=== PATIENT | female | born 1940 | race Caucasian/White ===

== ENCOUNTER 2017-11-08 11:23 | Emergency (ER) | payer MEDICARE, BC ==
[2016-05-08 14:06] VITALS: BMI 34.8
[~2017-11-08 11:23] MED LIST: ABILIFY2 MG PO; ADVAIR 250/501 DISK INH; ADVAIR 500/501 DISK INH; ALLEGRA180 MG PO; ASPIRIN81 MG PO; ATIVAN2 MG/ML IV; BAYER CHEWABLE81 MG PO; BENZONATATE200 MG PO; BISAC-EVAC10 MG/SUPP RC; CLARITIN 10 MG10 MG PO; CLARITIN10 MG/TAB PO; DALIRESP500 MCG PO; DEPO-MEDROL40 MG/ML IV; DEXTROSE 50%/WA50 ML IV; DIABETA1.25 MG PO; DUONEB 2.5-0.5 M3 ML INH; EX-LAX MIL400 MG/5 M PO; FERROUS SULFAT325 MG PO; FLORAJEN3 CAPS460 MG PO; FLUTICASONE PRO16 GM NASAL; FLUTICASONE PRO16 GM NS; GLUCAGON1 MG/KIT IM; GLUCAGON1 MG/KIT SQ; GLUCOPHAGE500 MG PO; HUMALOG 30100 UNITS/ SC; HUMALOG100 U/M1 SQ; INSTA-GLUCOSE31 GM PO; IPRAT-ALBUT 0.5-3 ML UPD; KEPPRA500 MG PO; LANTUS SOL100 UNIT/1 SQ; LASIX20 MG PO; LEVOTHROID50 MCG PO; LOPRESSOR25 MG PO; LOVENOX40 MG/0.4 SQ; MILK OF MAGNESI30 ML PO; MUCINEX DM ER1 EAC1 PO; MUCUS RELIEF400 MG PO; MYCOSTATIN 500,05 ML PO; MYSOLINE 50 MG50 MG PO; NEURONTIN 300300 MG PO; NOVOLOG100 U/ML SQ; OMNICEF300 MG PO; PLAVIX75 MG PO; PREDNISONE10 MG PO; PREDNISONE20 MG PO; PROAIR HFA8.5 GM INH; PROTONIX 40 MG40 MG OR; PROTONIX40 MG PO; PROVENTIL/2.5 MG/3 M INH; ROBITUSSIN DM 110 ML OR; SENNA PLUS TA1 UDTAB PO; SINGULAIR10 MG PO; SODIUM CL 0.91000 ML IVPB; TANZEUM30 MG/0.5 SC; TYLENOL325 MG PO; WELLBUTRIN XL150 M1 PO; ZOCOR40 MG PO; ZOLOFT100 MG PO; ZOLOFT50 MG PO; [UNRECOGNIZED DRUG - OTHER] PEG
[2017-11-08 12:02] LABS: HEMATOCRIT 47.8 % (36.0-48.0); HEMOGLOBIN 15.1 g/dL (12-16); LYMPHOCYTES 19.5 % (15-50); MCH 28.8 pg (26.0-34.0); MCHC 31.6 g/dL (31.0-37.0); MEAN PLATELET VOLUME 9.9 fL (7.4-10.4); NEUTROPHILS 73.6 % (40-80); PLATELET COUNT 240 10x3/uL (130-400); RBC 5.25 10x6/uL (4.00-5.40); RDW 16.1 % (11.5-14.5); WBC 8.1 10x3/uL (4.8-10.8)
[2017-11-08 12:17] LABS: ALBUMIN 3.4 g/dL (3.4-5.0); ANION GAP 10.7 mmol/L (8-16); BILIRUBIN - TOTAL 0.32 mg/dL (0.2-1.3); CALCIUM 8.8 mg/dL (8.5-10.1); CARBON DIOXIDE 33.8 mmol/L (21.0-32.0); POTASSIUM - SERUM 4.5 mmol/L (3.5-5.1); PROTEIN - SERUM 7.6 g/dL (6.4-8.2)
[2017-11-08 13:41] LABS: APPEARANCE HAZY (CLEAR); BILIRUBIN NEGATIVE (NEGATIVE); COLOR YELLOW (YELLOW); GLUCOSE NEGATIVE (NEGATIVE); KETONE NEGATIVE (NEGATIVE); NITRITE NEGATIVE (NEGATIVE); PROTEIN NEGATIVE (NEGATIVE); SPECIFIC GRAVITY 1.015 (1.005-1.020); UROBILINOGEN NORMAL (NORMAL)
[2017-11-08 13:46] LABS: BACTERIA FEW /hpf (NONE SEEN); EPITHELIAL CELLS 0-5 /hpf (0-5); RED CELLS - URINE 25-50 /hpf (0-5); WHITE CELLS - URINE 0-5 /hpf (0-5)
[2017-11-08 13:47] LABS: MUCUS <1+ /lpf (NONE SEEN)
== END 2017-11-08 13:50 | disposition home or self-care (01) ==
LOC: D.ER 11:23
PROVIDERS: Emergency Medicine
DX: R11.10 Vomiting, unspecified (principal); R10.9 Unspecified abdominal pain; J44.9 Chronic obstructive pulmonary disease, unspecified; J40 Bronchitis, not specified as acute or chronic; Z86.73 Personal history of transient ischemic attack (TIA), and cerebral infarction without residual deficits

== ENCOUNTER 2018-12-13 02:33 | Inpatient (IN) | payer MEDICARE, BC ==
[2018-12-13] VITALS (8 sets, daily range): BP systolic 90–154; BP diastolic 50–78; BMI 44.0; BMI 43.9
[~2018-12-13] VITALS: Ht 157.5 cm; Wt 85.1 kg
[2018-12-13] MEDS ORDERED: WELLBUTRIN SR150 MG PO (02:42)
[2018-12-13] MEDS ORDERED: LANTUS SOL100 UNIT/1 SC (02:43)
[2018-12-13] MEDS ORDERED: DULCOLAX5 MG PO (02:44)
[2018-12-13] MEDS ORDERED: SENNA LAXATIVE8.6 MG PO (02:44)
[2018-12-13] MEDS ORDERED: CALCIUM 600 +1 EAC3 PO (02:45)
[2018-12-13] MEDS ORDERED: COLACE100 MG PO (02:45)
[2018-12-13] MEDS ORDERED: DEPAKOTE125 MG PO (02:46)
[2018-12-13] MEDS ORDERED: KEPPRA500 MG PO (02:47)
[2018-12-13] MEDS ORDERED: MYSOLINE 50 MG50 MG PO (02:48)
[2018-12-13] MEDS ORDERED: CARBIDOPA-LEVO1 EAC4 PO (02:49)
[2018-12-13] MEDS ORDERED: IPRAT-ALBUT 0.5-3 ML UPD (02:50)
[2018-12-13] MEDS ORDERED: ACETAMINOPHEN325 MG PO (02:51)
[2018-12-13 03:09] LABS: BASOPHILS 0.2 % (0-2); EOSINOPHILS 6.3 % (0-7); HEMATOCRIT 46.1 % (36.0-48.0); HEMOGLOBIN 14.5 g/dL (12-16); IMMATURE GRANULOCYTES 0.2 % (0-5); LYMPHOCYTES 23.2 % (15-50); MCH 30.2 pg (26.0-34.0); MCHC 31.5 g/dL (31.0-37.0); MEAN PLATELET VOLUME 10.5 fL (7.4-10.4); MONOCYTES 13.2 % (2-11); NEUTROPHILS 56.9 % (40-80); PLATELET COUNT 280 10x3/uL (130-400); RDW 14.3 % (11.5-14.5); WBC 10.2 10x3/uL (4.8-10.8)
[2018-12-13 03:36] LABS: ALBUMIN 3.2 g/dL (3.4-5.0); ALKALINE PHOSPHATASE 61 U/L (46-116); ALT (SGPT) 8 U/L (10-68); BILIRUBIN - TOTAL 0.25 mg/dL (0.2-1.3); CALC OSMOLALITY 288 mosm/kg (275-300); CALCIUM 8.5 mg/dL (8.5-10.1); CARBON DIOXIDE 36.3 mmol/L (21.0-32.0); CHLORIDE - SERUM 99 mmol/L (98-107); CKMB 2.5 U/L (0.0-3.6); CREATINE KINASE 141 UL (21-215); CREATININE - SERUM 0.8 mg/dL (0.6-1.3); POTASSIUM - SERUM 3.9 mmol/L (3.5-5.1); PRO BNP 315 pg/mL (0-450); SODIUM 144 mmol/L (136-145); TROPONIN-I 0.018 ng/mL (0.000-0.060); UREA NITROGEN 18 mg/dL (7-18); eGFR NON AFRICAN AMERICAN 74 mL/min (90-120)
[2018-12-13 03:37] LABS: GLUCOSE 102 mg/dL (74-106)
--- NOTE | 2018-12-13 05:07 | NUR ---
PT BRIEF CHANGED. PT REPOSITIONED IN BED AND LEAVING VIA STRETCHER FOR CT.
--- NOTE | 2018-12-13 05:33 | NUR ---
PT RETURNED FROM CT.
--- NOTE | 2018-12-13 10:36 | NUR ---
ARRIVED FROM ER EARLIER IN THE SHIFT. PT IS ALERT AND ORIENTED X4. 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 L ANKLE HAS A SMALL AMT OF EDEMA NOTED. L FOOT IS COLD BUT CAPIILLARY REFILL IS LESS THAN 3 SEC. WHEEZING NOTED CHIQUITA UPPER LOBES. O2 ON @ 2L NC. SEE ADMISSION ASSESSMENT FOR FURTHER EVAL.
--- NOTE | 2018-12-13 18:35 | NUR ---
WITHOUT CHANGES OR DISTRESS NOTED AT THIS TIME.
--- NOTE | 2018-12-13 19:26 | NUR ---
PT ASLEEP, O2 5L NC. PT SLEEPING WITH MOUTH WIDE OPEN. RESP EVEN AND UNLABORED, NAME AND DATE PLACED ON BOARD. BEDLOW AND CALL LIGHT IN REACH. NO S/S OF DISTRESS. WILL CPOC
--- NOTE | 2018-12-13 20:36 | NUR ---
PT IS AAO X3, EDUCATION GIVEN ON MEDICATION. PT VERBALIZED UNDERSTANDING BUT MAY NEED FURTHER INSTRUCTION. PT FSBS IS 91, NO INSULIN GIVEN PER SLIDING SCALE. PT REQUESTED HER MEDICATION BE CRUSHED, CRUSHED MEDICATION THAT IS ALLOWED TO BE CRUSHED. PT EATING APPLE SAUCE WITH OUT ASSIST AND DRINKING MILK. HOB ABOVE 40 DEGREE. SOLU MED GIVEN IN RIGHT AC IV. PT DENIES ANY NEEDS AT THIS TIME. NEEDED ASSIST WHEN THE APPLE SAUCE GOT LOW, COULD NOT USE LEFT HAND. PT GIVEN ASSISTANCE. NO S/S OF DISTRESS. WILL CPOC
--- NOTE | 2018-12-14 00:52 | NUR ---
UNSUCCESSFUL ATTEMPT TO OBTAIN UA NEEDED.
--- NOTE | 2018-12-14 03:53 | NUR ---
PT COMPLAINED OF CHEST PAIN AND RIGHT HAND PAIN. DID AN EKG AND CHECKED VITALS. BOTH WNL. TOOK EXTRA STICKERS OFF OF PT AND SHE STATED SHE FELT BETTER. WHEN I ASKED PT WAS IT HEART PAIN SHE SAID IM NOT SURE I DONT KNOW WHERE MY HEART IS. I ASKED PT TO POINT TO WHERE SHE HAD PAIN AND IT WAS IN THE UPPER EPIGASTRIC AREA. PT HAS NO S/S OF DISTRESS. AND NO LONGER COMPLAINS OF PAIN. PLACED EKG IN CHART. PT IS INCONT A LARGE AMOUNT. CLEANED PT AND REPOSITIONED./ PT DENIES ANY OTHER NEEDS. WILL CPOC
[2018-12-14 04:00] VITALS: BP 114/58
[2018-12-14 06:16] LABS: BASOPHILS 0.2 % (0-2); EOSINOPHILS 0.1 % (0-7); HEMATOCRIT 41.4 % (36.0-48.0); HEMOGLOBIN 12.7 g/dL (12-16); IMMATURE GRANULOCYTES 0.3 % (0-5); LYMPHOCYTES 20.4 % (15-50); MCH 29.2 pg (26.0-34.0); MCHC 30.7 g/dL (31.0-37.0); MCV 95.2 fL (80.0-100.0); MEAN PLATELET VOLUME 10.4 fL (7.4-10.4); PLATELET COUNT 308 10x3/uL (130-400); RBC 4.35 10x6/uL (4.00-5.40); RDW 14.7 % (11.5-14.5)
[2018-12-14 06:39] LABS: BILIRUBIN - TOTAL 0.24 mg/dL (0.2-1.3); CALCIUM 8.9 mg/dL (8.5-10.1); CARBON DIOXIDE 36.4 mmol/L (21.0-32.0); CREATININE - SERUM 0.8 mg/dL (0.6-1.3); POTASSIUM - SERUM 4.4 mmol/L (3.5-5.1); PROTEIN - SERUM 7.4 g/dL (6.4-8.2)
--- NOTE | 2018-12-14 07:28 | NUR ---
PT FSBS IS 141 NO INSUILN NEEDED PER SLIDING SCALE. PT MORNING MEDS GIVEN. PT DENIES ANY NEEDS. WILL CPOC
--- NOTE | 2018-12-14 08:30 | NUR ---
PT RESTING IN BED. SHIFT ASSESSMENT PERFORMED. PT ORIENTED TO ROOM AND INSTRUCTED TO USE CALL LIGHT. DENIES PAIN AT THIS TIME, WILL CONT TO FOLLOW PLAN OF CARE
[2018-12-14 08:51] VITALS: BP 113/61
[2018-12-14 12:48] VITALS: BP 120/48
[2018-12-14 14:42] LABS: APPEARANCE CLEAR (CLEAR); BILIRUBIN NEGATIVE (NEGATIVE); COLOR YELLOW (YELLOW); GLUCOSE NEGATIVE (NEGATIVE); KETONE SMALL mg/dL (NEGATIVE); NITRITE NEGATIVE (NEGATIVE); PROTEIN NEGATIVE (NEGATIVE); SPECIFIC GRAVITY 1.015 (1.005-1.020); UROBILINOGEN NORMAL (NORMAL)
[2018-12-14 15:38] VITALS: Ht 157.5 cm; Wt 85.1 kg
[2018-12-14 16:49] VITALS: BP 130/58
--- NOTE | 2018-12-14 19:31 | NUR ---
RESUMED CARE OF PT, LYING IN BED RESPIRATIONS EVEN AND UNLABORED ON 5LPM VIA NC. 66 SR ON TELEMETRY. ULTRASOUND COMPLETE, SANDWICH TRAY PROVIDED. NO FURTHER NEEDS AT THIS TIME. CALL LIGHT IN REACH. SEE NURSE ASSESSMENT.
[2018-12-14 20:00] VITALS: BP 145/58
[2018-12-15] VITALS: BP 140/52
[2018-12-15 04:00] VITALS: BP 110/55
[2018-12-15 06:37] LABS: ANION GAP 9.4 mmol/L (8-16); CALCIUM 8.7 mg/dL (8.5-10.1); CARBON DIOXIDE 36.2 mmol/L (21.0-32.0); CREATININE - SERUM 0.8 mg/dL (0.6-1.3); POTASSIUM - SERUM 4.6 mmol/L (3.5-5.1)
[2018-12-15 06:39] LABS: BASOPHILS 0.1 % (0-2); EOSINOPHILS 0 % (0-7); HEMATOCRIT 41.2 % (36.0-48.0); HEMOGLOBIN 12.9 g/dL (12-16); IMMATURE GRANULOCYTES 0.6 % (0-5); LYMPHOCYTES 18.4 % (15-50); MCH 29.6 pg (26.0-34.0); MCHC 31.3 g/dL (31.0-37.0); MCV 94.5 fL (80.0-100.0); MEAN PLATELET VOLUME 10.6 fL (7.4-10.4); MONOCYTES 9.2 % (2-11); NEUTROPHILS 71.7 % (40-80); PLATELET COUNT 304 10x3/uL (130-400); RBC 4.36 10x6/uL (4.00-5.40); RDW 14.6 % (11.5-14.5); WBC 10.1 10x3/uL (4.8-10.8)
--- NOTE | 2018-12-15 08:30 | NUR ---
PT RESTING IN BED. SHIFT ASSESSMENT PERFORMED. DENIES ANY NEEDS AT THIS TIME. DENIES PAIN AT THIS TIME, WILL CONT TO FOLLOW PLAN OF CARE
[2018-12-15 08:56] VITALS: BP 146/64
[2018-12-15 12:34] VITALS: BP 127/59
[2018-12-15 17:51] VITALS: BP 146/60
--- NOTE | 2018-12-15 19:21 | NUR ---
PT IN BED WATCHING TELEVISON. DENIES NEEDS AT THIS TIME.
[2018-12-15 20:23] VITALS: BP 160/75
[2018-12-16 01:05] VITALS: BP 142/60
[2018-12-16 05:36] VITALS: BP 149/57
[2018-12-16 06:33] LABS: BASOPHILS 0.1 % (0-2); EOSINOPHILS 0 % (0-7); HEMATOCRIT 42.7 % (36.0-48.0); HEMOGLOBIN 13.2 g/dL (12-16); IMMATURE GRANULOCYTES 0.9 % (0-5); LYMPHOCYTES 17.4 % (15-50); MCH 29.3 pg (26.0-34.0); MCHC 30.9 g/dL (31.0-37.0); MCV 94.7 fL (80.0-100.0); MEAN PLATELET VOLUME 10.8 fL (7.4-10.4); NEUTROPHILS 72.6 % (40-80); PLATELET COUNT 298 10x3/uL (130-400); RBC 4.51 10x6/uL (4.00-5.40); RDW 14.7 % (11.5-14.5); WBC 11.3 10x3/uL (4.8-10.8)
[2018-12-16 06:45] LABS: CALC OSMOLALITY 284 mosm/kg (275-300); CALCIUM 8.4 mg/dL (8.5-10.1); CARBON DIOXIDE 30.8 mmol/L (21.0-32.0); CHLORIDE - SERUM 102 mmol/L (98-107); CREATININE - SERUM 0.7 mg/dL (0.6-1.3); GLUCOSE 143 mg/dL (74-106); POTASSIUM - SERUM 4.5 mmol/L (3.5-5.1); SODIUM 139 mmol/L (136-145); UREA NITROGEN 27 mg/dL (7-18); eGFR NON AFRICAN AMERICAN 86 mL/min (90-120)
--- NOTE | 2018-12-16 07:10 | NUR ---
REPORT RECIEVED FROM PARTY CHIEF. PATIENT LAYING IN BED ON BACK WITH EYES CLOSED AND BREATHING EVENLY. WILL CONTINUE WITH PLAN OF CARE. SR UP X 2 BED IN LOW POSTION AND CALL LIGHT IN REACH.
[2018-12-16 08:06] VITALS: BP 132/71
--- NOTE | 2018-12-16 10:39 | NUR ---
PATIENT AWAKE SITTING UP IN BED. PATIENT DENIES ANY NEEDS OR PAIN. ASSESSMENT COMPLETED. WILL CONTINUE TO MONITOR. SR UP X 2 BED IN LOW POSTION AND CALL LIGHT IN REACH.
[2018-12-16 11:45] VITALS: BP 136/67
--- NOTE | 2018-12-16 14:30 | NUR ---
PATIENT SITTING UP IN BED WATCHING TV. PATIENT IS STABLE AND VSS. PATIENT DENIES ANY NEEDS OR PAIN. WILL CONTINUE TO MONITOR. SR UP X 2 BED IN LOW POSTION AND CALL LIGHT IN REACH.
--- NOTE | 2018-12-16 15:55 | NUR ---
Rehab Prescreening Consult recieved and the chart has been reviewed. Her PT nixon stated she is a [facility] patient that is a total lift and does not ambulate. PT has signed off stating she is not appropriate for Skilled PT. To qualify for acute rehab a patient must have the need for a minimum of two therapies, and be able to participate in 3 hours of therapy 5 days a week. Oneyda Grimaldo RN Clinical Liaison, Rehab
[2018-12-16 15:56] VITALS: BP 114/66
--- NOTE | 2018-12-16 17:42 | NUR ---
PATIENT SITTING UP IN BED EATING SUPPER. PATIENT IS STABLE AND VSS. PATIENT DENIES ANY NEEDS OR PAIN. WILL CONTINUE TO MONITOR. SR UP X 2 BED IN LOW POSITION AND CALL LIGHT IN REACH.
--- NOTE | 2018-12-16 19:33 | NUR ---
EVENING ROUNDS COMPLETED. REPORT RECEIVED. PT SITTING UP IN BED WITH EYES OPEN, RR EVEN AND UNLABORED. NO S/S OF DISTRESS, INTRODUCED SELF TO PT. PT DENIES FURTHER NEEDS. PT ASKED ME TO SIT HER BED DOWN SLIGHTLY LOWER TO PROVIDE FOR COMFORT. CALL LIGHT IN REACH. WILL CTM.
[2018-12-16 20:00] VITALS: BP 105/60
[2018-12-17] VITALS (7 sets, daily range): BP systolic 109–149; BP diastolic 40–72
--- NOTE | 2018-12-17 01:46 | NUR ---
PT SITTING UP IN BED WITH EYES OPEN, RR EVEN AND UNLABORED. BED IN LOW POSITION. ZEESHAN ALARM PLACED UNDERNEATH PT. PT CURRENTLY BEING PROVIDED BED BATH. CALL LIGHT IN REACH. WILL CTM.
--- NOTE | 2018-12-17 02:15 | NUR ---
RN NOTE: PATIENT RESTING COMFORTABLY IN BED. RESPIRATIONS ARE EVEN AND UNLABORED. PATIENT PLACED ON BED ALARM. NO S/S OF DISTRESS. NO C/O PAIN. CALL LIGHT WITHIN REACH. WILL CPOC.
--- NOTE | 2018-12-17 04:59 | NUR ---
PT LYING IN BED WITH EYES OPEN, RR EVEN AND UNLABORED. DENIES FURTHER NEEDS AT THIS TIME. BED IN LOW POSITION. ZEESHAN ALARM TURNED ON. CALL LIGHT IN REACH. WILL CTM.
[2018-12-17 05:25] LABS: BASOPHILS 0.1 % (0-2); EOSINOPHILS 0 % (0-7); HEMATOCRIT 39.9 % (36.0-48.0); HEMOGLOBIN 12.3 g/dL (12-16); IMMATURE GRANULOCYTES 1.3 % (0-5); LYMPHOCYTES 15.2 % (15-50); MCH 29.2 pg (26.0-34.0); MCHC 30.8 g/dL (31.0-37.0); MCV 94.8 fL (80.0-100.0); MEAN PLATELET VOLUME 10.7 fL (7.4-10.4); MONOCYTES 13.8 % (2-11); NEUTROPHILS 69.6 % (40-80); PLATELET COUNT 312 10x3/uL (130-400); RBC 4.21 10x6/uL (4.00-5.40); RDW 14.9 % (11.5-14.5)
[2018-12-17 05:36] LABS: CALCIUM 8.1 mg/dL (8.5-10.1); CARBON DIOXIDE 33.7 mmol/L (21.0-32.0); CREATININE - SERUM 0.8 mg/dL (0.6-1.3); POTASSIUM - SERUM 4.7 mmol/L (3.5-5.1)
--- NOTE | 2018-12-17 07:10 | NUR ---
REPORT RECEIVED FROM ACID LOADER. PATIENT LAYING IN BED WITH EYES CLOSED AND BREATHING EVENLY. WILL CONTINUE WITH PLAN OF CARE. SR UP X 2 BED IN LOW PSOTION AND CALL LIGHT IN REACH.
--- NOTE | 2018-12-17 13:54 | NUR ---
PATIENT SITTING UP IN BED WATCHING TV. PATIENT IS STABLE AND VSS. PATIENT DENIES ANY NEEDS OR PAIN. WILL CONTINUE TO MONITOR. SR UP X 2 BED IN LOW PSOTION AND CALL LIGHT IN REACH.
--- NOTE | 2018-12-17 19:28 | NUR ---
EVENING ROUNDS COMPLETED, REPORT RECEIVED. PT SITTING UP IN BEDSIDE CHAIR WITH EYES OPEN, RR EVEN AND UNLABORED. BED IN LOW POSITION. NO S/S OF DISTRESS. DENIES FURTHER NEEDS. BEDPAN REMOVED FROM PT, PT HAD SMALL PARTIALLY FORMED BOWEL MOVEMENT, BROWN IN COLOR. INTRODUCED SELF TO PT. PT DENIES FURTHER NEEDS AT THIS TIME. OXYGEN AT 5 LITERS BY NASAL CANNULA. CALL LIGHT IN REACH. WILL CTM.
--- NOTE | 2018-12-18 01:56 | NUR ---
PT SITTING UP IN BED WITH EYES CLOSED, RR EVEN AND UNLABORED. NO S/S OF DISTRESS NOTED. 54 SINUS NATALIIA ON TELEMETRY. BED IN LOW POSITION. ZEESHAN ALARM TURNED ON. CALL LIGHT IN REACH. WILL CTM.
[2018-12-18 03:53] VITALS: BP 131/66
--- NOTE | 2018-12-18 05:00 | NUR ---
ASSESSMENT REVIEWED AND IN AGREEMENT. PT RESTING WITH NO DISTRESS. MONITOR AND CPOC.
[2018-12-18 05:34] LABS: BASOPHILS 0.1 % (0-2); EOSINOPHILS 0 % (0-7); HEMATOCRIT 39.6 % (36.0-48.0); HEMOGLOBIN 12.2 g/dL (12-16); IMMATURE GRANULOCYTES 1.3 % (0-5); LYMPHOCYTES 12.4 % (15-50); MCH 29.6 pg (26.0-34.0); MCHC 30.8 g/dL (31.0-37.0); MCV 96.1 fL (80.0-100.0); MEAN PLATELET VOLUME 11.4 fL (7.4-10.4); MONOCYTES 10.4 % (2-11); NEUTROPHILS 75.8 % (40-80); PLATELET COUNT 284 10x3/uL (130-400); RBC 4.12 10x6/uL (4.00-5.40); RDW 14.8 % (11.5-14.5)
[2018-12-18 05:50] LABS: ANION GAP 5.8 mmol/L (8-16); CALCIUM 8.1 mg/dL (8.5-10.1); CARBON DIOXIDE 31.7 mmol/L (21.0-32.0); CREATININE - SERUM 0.8 mg/dL (0.6-1.3); POTASSIUM - SERUM 4.5 mmol/L (3.5-5.1)
--- NOTE | 2018-12-18 05:56 | NUR ---
PT SITTING UP IN BED WITH EYES OPEN, RR EVEN AND UNLABORED. NO S/S OF DISTRESS NOTED. DENIES FURTHER NEEDS AT THIS TIME. CALL LIGHT IN REACH. WILL CTM.
--- NOTE | 2018-12-18 07:10 | NUR ---
REPORT RECIEVED FROM ENDBAND CUTTER HAND. PATIENT LAYING IN BED ON BACK WITH EYES CLOSED AND BREATHING EVENLY. VSS. WILL CONTINUE WITH PLAN OF CARE.
[2018-12-18 09:41] VITALS: BP 137/60
--- NOTE | 2018-12-18 09:50 | NUR ---
PATIENT AWAKE ALERT AND ORIENTED X 2. PATIENT IS STABLE AND VSS. PATIENT DENIES ANY NEEDS OR PAIN. ASSESSMENT COMPLETED. SR UP X 2 BED IN LOW POSTION AND CALL LIGHT IN REACH. WILL CONTINUE TO MONITOR.
[2018-12-18 11:45] VITALS: BP 139/68
--- NOTE | 2018-12-18 13:36 | NUR ---
PATIENT LAYING IN BED WATCHING TV. LINEN CHANGED AND PATYIENT REPOSTIONED FOR COMFORT. PATIENT DENIES ANY NNEDS OR PAIN. WILL CONTINUE TO MONITOR. SR UP X 2 BED IN LOW POSITION AND CALL LIGHT IN REACH. BED ALARM IN PLACE.
[2018-12-18 15:58] VITALS: BP 136/65
--- NOTE | 2018-12-18 17:37 | NUR ---
PATIENT SITTING UP IN BED EATING SUPPER. MEDS GIVEN PER MAR. PATIENT IS STABLE AND VSS. PATIENT DENEIS ANY NEEDS OR PAIN. WILL CONTINUE TO MONITOR. SR UP X 2 BED IN LOW POSITION AND CALL LIGHT REACH.
--- NOTE | 2018-12-18 19:23 | NUR ---
RECIEVED UP IN BED WITH HOB ELEVATED, EYES OPEN AND TV ON. ALERT AND ORIENTED X4. HAS LEFT SIDED WEAKNESS AND IS INCONT AT TIMES. DENIES ANY NEEDS.
[2018-12-18 19:55] VITALS: BP 132/55
[2018-12-18 23:50] VITALS: BP 130/56
[2018-12-19 03:45] VITALS: BP 144/59
[2018-12-19 06:35] LABS: BASOPHILS 0.1 % (0-2); EOSINOPHILS 0.2 % (0-7); HEMATOCRIT 39.1 % (36.0-48.0); HEMOGLOBIN 12.2 g/dL (12-16); LYMPHOCYTES 16.4 % (15-50); MCH 29.9 pg (26.0-34.0); MCHC 31.2 g/dL (31.0-37.0); MCV 95.8 fL (80.0-100.0); MEAN PLATELET VOLUME 10.9 fL (7.4-10.4); MONOCYTES 8.9 % (2-11); NEUTROPHILS 73.4 % (40-80); PLATELET COUNT 279 10x3/uL (130-400); RBC 4.08 10x6/uL (4.00-5.40)
[2018-12-19 06:37] LABS: WBC 12.9 10x3/uL (4.8-10.8)
--- NOTE | 2018-12-19 07:10 | NUR ---
REPORT RECIEVED FROM INBOUND SALES REPRESENTATIVE. PATIENT AWAKE ALERT AND ORIENTED X 4. VSS. PATIENT DENEIS ANY NEEDS OR PAIN. WILL CONTINUE WITH PLAN OF CARE.
[2018-12-19 07:12] LABS: CALC OSMOLALITY 291 mosm/kg (275-300); CALCIUM 8.2 mg/dL (8.5-10.1); CARBON DIOXIDE 32.3 mmol/L (21.0-32.0); CHLORIDE - SERUM 104 mmol/L (98-107); CREATININE - SERUM 0.7 mg/dL (0.6-1.3); POTASSIUM - SERUM 4.3 mmol/L (3.5-5.1); SODIUM 144 mmol/L (136-145); UREA NITROGEN 25 mg/dL (7-18); eGFR NON AFRICAN AMERICAN 86 mL/min (90-120)
[2018-12-19 07:13] LABS: GLUCOSE 110 mg/dL (74-106)
[2018-12-19 08:03] VITALS: BP 138/48
[2018-12-19 12:01] VITALS: BP 134/49
--- NOTE | 2018-12-19 14:30 | NUR ---
PATIENT IS STABLE AND UNCHNGED. WILL CONTINUE TO MONITOR. SR UP X 2 BED IN LOW POSTION AND CALL LIGHT IN REACH.
--- NOTE | 2018-12-19 15:04 | NUR ---
Nutrition follow-up: Diet: ADA mechanical soft with nectar thick liquids PO intake ~75% average of meals Labs reviewed Wt: 164# +BM RDN following
[2018-12-19 15:40] VITALS: BP 120/87
--- NOTE | 2018-12-19 16:30 | MORECARE ---
CASE MANAGEMENT DISCHARGE SUMMARY PATIENT: LIZZIE HOLLOWAY UNIT: [id number] ADM DATE: 12/13/18 AGE: 78 : 41 SEX: F ROOM/BED: D.7309 AUTHOR: MATT,DOC PHYSICIAN: REFERRING PHYSICIAN: VICKEY ORTIZ MD DATE OF SERVICE: 12/19/18 Discharge Plan Patient Name: LIZZIE HOLLOWAY Facility: [facility]:[place] : 1940 Planned Disposition: Nursing Facility ZOFIA Cert Anticipated Discharge Date: Discharge Date: Expected LOS: Initial Reviewer: [id number] Initial Review Date: 12/19/2018 Generated: 12/19/18 5:29 pm Comments DCP- Discharge Planning Updated by [id number]: Aileen Salinas on 12/18/18 5:[address] CM MET WITH THE PATIENT AT THE BEDSIDE. EXPLAINED CM HAD ORDER FROM MD TO DISCUSS DCP. PATIENT CONSENTS TO SPEAK WITH CM. SHE WAS ADMITTED FROM [facility]. SHE WOULD LIKE TO DISCHARGE TO HER SISTER'S HOME AT DISCHARGE. SHE STATES SHE WILL NEED TO SPEAK WITH HER SISTER SHE HAS HER OWN MEDICAL ISSUES. HER SISTER IS ALAN LEE. PATIENT REPORTS SHE HAS A CELL PHONE [phone]. DISCHARGE PLAN IS PENDING. WILL NEED TO FOLLOW UP WITH SHIRLEY AND HER SISTER. DCPIA - Discharge Planning Initial Assessment Updated by [id number]: Bolivar Pink on 12/19/18 4:28 pm * Is the patient Alert and Oriented? Yes * How many steps to enter\exit or inside your home? NONE * PCP DR. ZUÑIAG * [facility] * Preadmission Environment Group Fitness Instructor Acute Care Facility * Facility Name [facility] * ADLs Partial Dependent * Partial ADLs (Assistance needed) Ambulation Bathing Medication Management Transfers * Equipment Other * Other Equipment ALL MEDICAL EQUIPMENT PROVIDED BY THE FACILITY * List name and contact numbers for known caregivers / representatives who currently or will assist patient after discharge: ALAN LEE, SISTER, * Verbal permission to speak to the caregivers and representatives has been obtained from the patient. Yes * Community resources currently utilized None * Please name any agencies selected above. NONE * Additional services required to return to the preadmission environment? No * Can the patient safely return to the preadmission environment? Yes * Has this patient been hospitalized within the prior 30 days at any hospital? No External Providers External Provider: [facility] Next Contact Date: 12/19/2018 Service Request Date: Service Type: Resolution: Reviewer: Comments: Coverage Notice Reviewer: [id number] Pink Notice Issued Date-Time: 12/19/2018 11:05 Notice Type: Patient Choice Letter Notice Delivered To: Family Member Relationship to Patient: Sister Attending Anesthesiologist Name: ALAN LEE Delivery Method: PHONE - Phone Becca Days: Prior Verbal Notification: Recipient Understood Notice: Yes Recipient Signature: Med Rec Note Co-signed by Attending: Coverage Notice Comment: SHIRLEY ROSE RETURN TO [facility] Reviewer: [id number] Pink Notice Issued Date-Time: 12/19/2018 14:30 Notice Type: IM Discharge Notice Notice Delivered To: Family Member Relationship to Patient: Sister Attending Anesthesiologist Name: ALAN LEE Delivery Method: PHONE - Phone Becca Days: Prior Verbal Notification: Recipient Understood Notice: Yes Recipient Signature: Med Rec Note Co-signed by Attending: Coverage Notice Comment: HAND DELIVERED COPY TO PT IN ROOM. Reviewer: [id number] Pink Notice Issued Date-Time: 12/19/2018 14:30 Notice Type: IM Discharge Notice Notice Delivered To: Patient Relationship to Patient: Attending Anesthesiologist Name: Delivery Method: HAND - Hand Delivered Becca Days: Prior Verbal Notification: Recipient Understood Notice: Yes Recipient Signature: Med Rec Note Co-signed by Attending: Coverage Notice Comment: PT REPORTS INABILITY TO SIGN ANYTHING Patient Name: LIZZIE HOLLOWAY Page [id number] at 1630 All edits/amendments must be made on the electronic document DICTATION DATE: 12/19/181628 FOSTER PARENT: ARNEL 12/19/181628 RPT#: [id number] DC DATE: STATUS: ADM IN [facility] [address] [place] [address] END OF REPORT
--- NOTE | 2018-12-19 16:41 | MORECARE ---
CASE MANAGEMENT DISCHARGE SUMMARY PATIENT: LIZZIE HOLLOWAY UNIT: [id number] ADM DATE: 12/13/18 AGE: 78 : 41 SEX: F ROOM/BED: D.3549 AUTHOR: MATT,DOC PHYSICIAN: REFERRING PHYSICIAN: VICKEY ORTIZ MD DATE OF SERVICE: 12/19/18 Discharge Plan Patient Name: LIZZIE HOLLOWAY Facility: [facility]:[place] : 1940 Planned Disposition: Nursing Facility ZOFIA Cert Anticipated Discharge Date: Discharge Date: Expected LOS: Initial Reviewer: [email or web address] Initial Review Date: 12/19/2018 Generated: 12/19/18 5:41 pm Comments DCP- Discharge Planning Updated by [id number]: Bolivar Pink on 12/19/18 3:[address] Patient Name: LIZZIE HOLLOWAY Encounter No: [id number] : 1940 Primary Insurance: MEDICARE A & B Anticipated DC Date: Planned Disposition: Nursing Facility ZOFIA Cert External Planned Provider: [facility], [employer] MEDICAID BED DCP follow-up note: CM SPOKE TO PT'S SISTER VIA PHONE, ALAN LEE, , WHO INFORMED CM THAT SHE TOOK CARE OF PT FOR 10 YEARS AT HOME. PT IS NOW A TOTAL CARE PT AND WILL HAVE TO RETURN TO [facility]. ALAN SEE'S PT AT LEAST THREE TIMES PER WEEK AT THE FACILITY AND IS SATISFIED WITH CARE RECEIVED THERE. CHOICE LETTER COMPLETED VIA PHONE. CM MET WITH PT LATER IN THE DAY, DISCUSSED DISCHARGE PLANNING. PT WAS HOPEFUL SHE COULD GO HOME BUT UNDERSTANDS THAT HER SISTER CANNOT CARE FOR HER. ALAN DILLAN CONTACTED VIA PHONE, CHOICE DISCUSSED, PROVIDER LISTING LEFT WITH PT. CHOICE COMPLETED VIA PHONE FOR [facility]. CM PROVIDED AND DISCUSSED IMPORTANT MESSAGE FROM MEDICARE. PT REPORTS INABILITY TO SIGN ANYTHING. ALAN ASKED TO BE NOTIFIED WHEN PT DISCHARGES BACK TO [facility]. CM NOTIFIED SHAY OF [facility], , WHO VERIFIED PT IS IN [facility] CARE BED AT FACILITY. CM FAXED UPDATE TO [facility] VIA SHAY AT [phone]. FOR DISCHARGE, FAX DISCHARGE INFORMATION TO [facility] AT [phone]. NURSE REPORT TO BE CALLED TO [facility] AT [phone]. [facility] TO ARRANGE VAN TRANSPORTATION. Bolivar Pink, CASE MANAGEMENT DCP- Discharge Planning Updated by [id number]: Aileen Brad on 12/18/18 5:[address] CM MET WITH THE PATIENT AT THE BEDSIDE. EXPLAINED CM HAD ORDER FROM MD TO DISCUSS DCP. PATIENT CONSENTS TO SPEAK WITH CM. SHE WAS ADMITTED FROM [facility]. SHE WOULD LIKE TO DISCHARGE TO HER SISTER'S HOME AT DISCHARGE. SHE STATES SHE WILL NEED TO SPEAK WITH HER SISTER SHE HAS HER OWN MEDICAL ISSUES. HER SISTER IS ALAN LEE. PATIENT REPORTS SHE HAS A CELL PHONE [phone]. DISCHARGE PLAN IS PENDING. WILL NEED TO FOLLOW UP WITH SHIRLEY AND HER SISTER. DCPIA - Discharge Planning Initial Assessment Updated by [id number]: Bolivar Pnik on 12/19/18 4:28 pm * Is the patient Alert and Oriented? Yes * How many steps to enter\exit or inside your home? NONE * PCP DR. ZUÑIGA * Pharm[facility] * Preadmission Environment Longterm Acute Care Facility * Facility Name [facility] * ADLs Partial Dependent * Partial ADLs (Assistance needed) Ambulation Bathing Medication Management Transfers * Equipment Other * Other Equipment ALL MEDICAL EQUIPMENT PROVIDED BY THE FACILITY * List name and contact numbers for known caregivers / representatives who currently or will assist patient after discharge: ALAN LEE, SISTER, * Verbal permission to speak to the caregivers and representatives has been obtained from the patient. Yes * Community resources currently utilized None * Please name any agencies selected above. NONE * Additional services required to return to the preadmission environment? No * Can the patient safely return to the preadmission environment? Yes * Has this patient been hospitalized within the prior 30 days at any hospital? No Coverage Notice Reviewer: [id number] - Bolivar Pink Notice Issued Date-Time: 12/19/2018 11:05 Notice Type: Patient Choice Letter Notice Delivered To: Family Member Relationship to Patient: Sister Bellhop Service Captain Name: ALAN LEE Delivery Method: PHONE - Phone Becca Days: Prior Verbal Notification: Recipient Understood Notice: Yes Recipient Signature: Med Rec Note Co-signed by Attending: Coverage Notice Comment: [place] RETURN TO [facility] Reviewer: [id number] Rory Pink Notice Issued Date-Time: 12/19/2018 14:30 Notice Type: IM Discharge Notice Notice Delivered To: Family Member Relationship to Patient: Sister Bellhop Service Captain Name: ALAN LEE Delivery Method: PHONE - Phone Becca Days: Prior Verbal Notification: Recipient Understood Notice: Yes Recipient Signature: Med Rec Note Co-signed by Attending: Coverage Notice Comment: HAND DELIVERED COPY TO PT IN ROOM. Reviewer: [id number] Rory Pink Notice Issued Date-Time: 12/19/2018 14:30 Notice Type: IM Discharge Notice Notice Delivered To: Patient Relationship to Patient: Bellhop Service Captain Name: Delivery Method: HAND - Hand Delivered Becca Days: Prior Verbal Notification: Recipient Understood Notice: Yes Recipient Signature: Med Rec Note Co-signed by Attending: Coverage Notice Comment: PT REPORTS INABILITY TO SIGN ANYTHING Last DP export: 12/19/18 3:29 pm Patient Name: LIZZIE HOLLOWAY Page [phone] at 1641 All edits/amendments must be made on the electronic document DICTATION DATE: 12/19/18 164 STORYBOARD ARTIST: ARNEL 12/19/181640 RPT#: [id number] DC DATE: STATUS: ADM IN [facility] [address] [place] [address] END OF REPORT
--- NOTE | 2018-12-19 19:41 | NUR ---
RESUMED CARE OF PT, LYING IN BED RESPIRATIONS EVEN AND UNLABORED ON 2LPM VIA NC. 68 SR ON TELEMETRY. RIGHT FOREARM SALINE LOCKED. NO NEEDS VOICED AT THIS TIME, CALL LIGHT IN REACH. SEE NURSE ASSESSMENT.
[2018-12-19 20:00] VITALS: BP 125/56
[2018-12-20] VITALS: BP 130/55; BP 164/50
[2018-12-20 05:55] LABS: BASOPHILS 0 % (0-2); EOSINOPHILS 0.3 % (0-7); HEMOGLOBIN 10.3 g/dL (12-16); IMMATURE GRANULOCYTES 1.5 % (0-5); LYMPHOCYTES 14.3 % (15-50); MCH 29.4 pg (26.0-34.0); MCHC 31.2 g/dL (31.0-37.0); MCV 94.3 fL (80.0-100.0); MEAN PLATELET VOLUME 11.1 fL (7.4-10.4); MONOCYTES 7.7 % (2-11); NEUTROPHILS 76.2 % (40-80); PLATELET COUNT 237 10x3/uL (130-400); RDW 15.2 % (11.5-14.5); WBC 11.3 10x3/uL (4.8-10.8)
[2018-12-20 06:36] LABS: ALBUMIN 2.5 g/dL (3.4-5.0); ANION GAP 11.5 mmol/L (8-16); BILIRUBIN - TOTAL 0.33 mg/dL (0.2-1.3); CALCIUM 7.9 mg/dL (8.5-10.1); CARBON DIOXIDE 30.2 mmol/L (21.0-32.0); CREATININE - SERUM 0.8 mg/dL (0.6-1.3); POTASSIUM - SERUM 4.7 mmol/L (3.5-5.1); PROTEIN - SERUM 6.1 g/dL (6.4-8.2)
[2018-12-20 09:57] VITALS: BP 105/49
--- NOTE | 2018-12-20 11:16 | NUR ---
BLOOD SUGAR OF 191, 8UNITS OF HUMULIN GIVEN PER S/S. PT IN BED, DENIES ANY NEEDS AT THIS TIME. CALL LIGHT IN REACH, NAD NOTED, WILL CONTINUE TO MONITOR.
--- NOTE | 2018-12-20 16:11 | NUR ---
BLOOD SUGAR OF 184 GAVE 8 UNITS OF HUMULIN PER S/S. PT DENIES ANY NEEDS AT THIS TIME. CALL LIGHT IN REACH, NAD NOTED.
--- NOTE | 2018-12-20 16:25 | NUR ---
RECEIVED REPORT FROM IASHWARYA LEWSI. ROOM NOT CLEANED YET.
[2018-12-20 18:48] VITALS: BP 131/71
--- NOTE | 2018-12-20 19:11 | NUR ---
INTRODUCED SELF TO PATIENT, RESP EVEN AND UNLABORED, HELPED PATIENT OFF BEDPAN AND REPOSITIONED.
[2018-12-20 20:00] VITALS: BP 136/50
--- NOTE | 2018-12-21 02:44 | NUR ---
PATIENT RESTING QUIETLY, EYES CLOSED. RESP EVEN AND UNLABORED.
[2018-12-21 04:00] VITALS: BP 117/52
[2018-12-21 05:01] LABS: BASOPHILS 0.1 % (0-2); EOSINOPHILS 0.2 % (0-7); HEMATOCRIT 32.2 % (36.0-48.0); HEMOGLOBIN 9.9 g/dL (12-16); IMMATURE GRANULOCYTES 1.5 % (0-5); LYMPHOCYTES 10.5 % (15-50); MCHC 30.7 g/dL (31.0-37.0); MCV 94.4 fL (80.0-100.0); MEAN PLATELET VOLUME 10.7 fL (7.4-10.4); MONOCYTES 7.3 % (2-11); NEUTROPHILS 80.4 % (40-80); PLATELET COUNT 256 10x3/uL (130-400); RBC 3.41 10x6/uL (4.00-5.40); RDW 15.2 % (11.5-14.5); WBC 11.9 10x3/uL (4.8-10.8)
[2018-12-21 05:19] LABS: ALBUMIN 2.5 g/dL (3.4-5.0); ANION GAP 10.4 mmol/L (8-16); BILIRUBIN - TOTAL 0.35 mg/dL (0.2-1.3); CALCIUM 8.1 mg/dL (8.5-10.1); CARBON DIOXIDE 32.3 mmol/L (21.0-32.0); CREATININE - SERUM 0.8 mg/dL (0.6-1.3); POTASSIUM - SERUM 4.7 mmol/L (3.5-5.1); PROTEIN - SERUM 6.1 g/dL (6.4-8.2)
--- NOTE | 2018-12-21 09:00 | MORECARE ---
CASE MANAGEMENT DISCHARGE SUMMARY PATIENT: LIZZIE HOLLOWAY UNIT: [id number] ADM DATE: 12/13/18 AGE: 78 : 41 SEX: F ROOM/BED: D.8933 AUTHOR: MATT,DOC PHYSICIAN: REFERRING PHYSICIAN: VICKEY ORTIZ MD DATE OF SERVICE: 12/21/18 Discharge Plan Patient Name: LIZZIE HOLLOWAY Facility: [facility]:[place] : 1940 Planned Disposition: Nursing Facility ZOFIA Cert Anticipated Discharge Date: Discharge Date: Expected LOS: Initial Reviewer: [id number] Initial Review Date: 12/19/2018 Generated: 12/21/18 10:00 am Comments DCP- Discharge Planning Updated by [email or web address]: Bolivar Pink on 12/19/18 3:[address] Patient Name: LIZZIE HOLLOWAY Encounter No: [id number] : 1940 Primary Insurance: MEDICARE A & B Anticipated DC Date: Planned Disposition: Nursing Facility ZOFIA Cert External Planned Provider: [facility], LONG-TERM CARE MEDICAID BED DCP follow-up note: CM SPOKE TO PT'S SISTER VIA PHONE, ALAN LEE, , WHO INFORMED CM THAT SHE TOOK CARE OF PT FOR 10 YEARS AT HOME. PT IS NOW A TOTAL CARE PT AND WILL HAVE TO RETURN TO [facility]. ALAN SEE'S PT AT LEAST THREE TIMES PER WEEK AT THE FACILITY AND IS SATISFIED WITH CARE RECEIVED THERE. CHOICE LETTER COMPLETED VIA PHONE. CM MET WITH PT LATER IN THE DAY, DISCUSSED DISCHARGE PLANNING. PT WAS HOPEFUL SHE COULD GO HOME BUT UNDERSTANDS THAT HER SISTER CANNOT CARE FOR HER. ALAN DILLAN CONTACTED VIA PHONE, CHOICE DISCUSSED, PROVIDER LISTING LEFT WITH PT. CHOICE COMPLETED VIA PHONE FOR [facility]. CM PROVIDED AND DISCUSSED IMPORTANT MESSAGE FROM MEDICARE. PT REPORTS INABILITY TO SIGN ANYTHING. ALAN ASKED TO BE NOTIFIED WHEN PT DISCHARGES BACK TO [facility]. 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 CM FAXED UPDATE TO [facility] VIA [employer] AT [phone]. FOR DISCHARGE, FAX DISCHARGE INFORMATION TO [facility] AT [phone]. NURSE REPORT TO BE CALLED TO [facility] AT [phone]. [facility] TO ARRANGE VAN TRANSPORTATION. Bolivar Pink, CASE MANAGEMENT DCP- Discharge Planning Updated by [id number]: Aileenlydia Salinas on 12/18/18 5:[address] CM MET WITH THE PATIENT AT THE BEDSIDE. EXPLAINED CM HAD ORDER FROM MD TO DISCUSS DCP. PATIENT CONSENTS TO SPEAK WITH CM. SHE WAS ADMITTED FROM [facility]. SHE WOULD LIKE TO DISCHARGE TO HER SISTER'S HOME AT DISCHARGE. SHE STATES SHE WILL NEED TO SPEAK WITH HER SISTER SHE HAS HER OWN MEDICAL ISSUES. HER SISTER IS ALAN LEE. PATIENT REPORTS SHE HAS A CELL PHONE [phone]. DISCHARGE PLAN IS PENDING. WILL NEED TO FOLLOW UP WITH SHIRLEY AND HER SISTER. DCPIA - Discharge Planning Initial Assessment Updated by [id number]: Bolivar Pink on 12/19/18 4:28 pm * Is the patient Alert and Oriented? Yes * How many steps to enter\exit or inside your home? NONE * PCP DR. ZUÑIGA * [facility] * Preadmission Environment [facility] Acute [facility] * Facility Name [facility] * ADLs Partial Dependent * Partial ADLs (Assistance needed) Ambulation Bathing Medication Management Transfers * Equipment Other * Other Equipment ALL MEDICAL EQUIPMENT PROVIDED BY THE FACILITY * List name and contact numbers for known caregivers / representatives who currently or will assist patient after discharge: ALAN LEE, SISTER, * Verbal permission to speak to the caregivers and representatives has been obtained from the patient. Yes * Community resources currently utilized None * Please name any agencies selected above. NONE * Additional services required to return to the preadmission environment? No * Can the patient safely return to the preadmission environment? Yes * Has this patient been hospitalized within the prior 30 days at any hospital? No External Providers External Provider: [facility] Next Contact Date: 12/19/2018 Service Request Date: Service Type: Resolution: Reviewer: Comments: Coverage Notice Reviewer: [id number] - Bolivar Pink Notice Issued Date-Time: 12/19/2018 11:05 Notice Type: Patient Choice Letter Notice Delivered To: Family Member Relationship to Patient: Sister Mason Tender Name: ALAN LEE Delivery Method: PHONE - Phone Becca Days: Prior Verbal Notification: Recipient Understood Notice: Yes Recipient Signature: Med Rec Note Co-signed by Attending: Coverage Notice Comment: SHIRLEY ROSE RETURN TO LTC Reviewer: [id number] Rory Pink Notice Issued Date-Time: 12/19/2018 14:30 Notice Type: IM Discharge Notice Notice Delivered To: Family Member Relationship to Patient: Sister Mason Tender Name: ALAN LEE Delivery Method: PHONE - Phone Becca Days: Prior Verbal Notification: Recipient Understood Notice: Yes Recipient Signature: Med Rec Note Co-signed by Attending: Coverage Notice Comment: HAND DELIVERED COPY TO PT IN ROOM. Reviewer: [id number] Rory Pink Notice Issued Date-Time: 12/19/2018 14:30 Notice Type: IM Discharge Notice Notice Delivered To: Patient Relationship to Patient: Mason Tender Name: Delivery Method: HAND - Hand Delivered Becca Days: Prior Verbal Notification: Recipient Understood Notice: Yes Recipient Signature: Med Rec Note Co-signed by Attending: Coverage Notice Comment: PT REPORTS INABILITY TO SIGN ANYTHING Last DP export: 12/19/18 3:41 pm Patient Name: LIZZIE HOLLOWAY Page [phone] at 0900 All edits/amendments must be made on the electronic document DICTATION DATE: 12/21/18899 FINANCIAL INSTITUTION BRANCH MANAGER: ARNEL 12/21/18899 RPT#: [id number] DC DATE: STATUS: ADM IN [facility] [address] [place] [address] END OF REPORT
--- NOTE | 2018-12-21 09:28 | MORECARE ---
CASE MANAGEMENT DISCHARGE SUMMARY PATIENT: LIZZIE HOLLOWAY UNIT: [id number] ADM DATE: 12/13/18 AGE: 78 : 41 SEX: F ROOM/BED: D.3311 AUTHOR: MATT,DOC PHYSICIAN: REFERRING PHYSICIAN: VICKEY ORTIZ MD DATE OF SERVICE: 12/21/18 Discharge Plan Patient Name: LIZZIE HOLLOWAY Facility: [facility]:[place] : 1940 Planned Disposition: Nursing Facility ZOFIA Cert Anticipated Discharge Date: 12/21/18 Discharge Date: Expected LOS: 8 Initial Reviewer: [id number] Initial Review Date: 12/19/2018 Generated: 12/21/18 10:28 am Comments DCP- Discharge Planning Updated by [id number]: Bolivar Pink on 12/21/18 8:[address] Patient Name: LIZZIE HOLLOWAY Encounter No: [id number] : 1940 Primary Insurance: MEDICARE A & B Anticipated DC Date: 12-21-2018 Planned Disposition: Nursing Facility ZOFIA Cert External Planned Provider: [facility], LONG TERM CARE MEDICAID BED DCP follow-up note: CM MET WITH PT IN ROOM WHO IS STILL WILLING FOR DISCHARGE BACK TO [facility]. CM PROVIDED AND DISCUSSED IMPORTANT MESSAGE FROM MEDICARE. CM FAXED UPDATE TO [facility] VIA [employer] AT [phone]. FOR DISCHARGE, FAX DISCHARGE INFORMATION TO [facility] AT [phone]. NURSE REPORT TO BE CALLED TO [facility] AT [phone]. [facility] TO ARRANGE VAN TRANSPORTATION. Bolivar Pink CASE CHELSY DCP- Discharge Planning Updated by [email or web address]: Bolivar Pink on 12/19/18 3:[address] Patient Name: LIZZIE HOLLOWAY Encounter No: [id number] : 1940 Primary Insurance: MEDICARE A & B Anticipated DC Date: Planned Disposition: Nursing Facility ZOFIA Cert External Planned Provider: [facility], [facility] CARE MEDICAID BED DCP follow-up note: CM SPOKE TO PT'S SISTER VIA PHONE, ALAN LEE, , WHO INFORMED CM THAT SHE TOOK CARE OF PT FOR 10 YEARS AT HOME. PT IS NOW A TOTAL CARE PT AND WILL HAVE TO RETURN TO [facility]. ALAN GUARDADO'S PT AT LEAST THREE TIMES PER WEEK AT THE FACILITY AND IS SATISFIED WITH CARE RECEIVED THERE. CHOICE LETTER COMPLETED VIA PHONE. CM MET WITH PT LATER IN THE DAY, DISCUSSED DISCHARGE PLANNING. PT WAS HOPEFUL SHE COULD GO HOME BUT UNDERSTANDS THAT HER SISTER CANNOT CARE FOR HER. ALAN GRIMALDO CONTACTED VIA PHONE, CHOICE DISCUSSED, PROVIDER LISTING LEFT WITH PT. CHOICE COMPLETED VIA PHONE FOR [facility]. CM PROVIDED AND DISCUSSED IMPORTANT MESSAGE FROM MEDICARE. PT REPORTS INABILITY TO SIGN ANYTHING. ALAN ASKED TO BE NOTIFIED WHEN PT DISCHARGES BACK TO LONG-TERM. CM NOTIFIED SHAY OF [facility], , WHO VERIFIED PT IS IN SPORT INTERNSHIP CARE BED AT FACILITY. CM FAXED UPDATE TO [facility] VIA [employer] AT [phone]. FOR DISCHARGE, FAX DISCHARGE INFORMATION TO [facility] AT [phone]. NURSE REPORT TO BE CALLED TO [facility] AT [phone]. [facility] TO ARRANGE VAN TRANSPORTATION. Bolivar Pink, CASE MANAGEMENT DCP- Discharge Planning Updated by [id number]: Aileen Salinas on 12/18/18 5:[address] CM MET WITH THE PATIENT AT THE BEDSIDE. EXPLAINED CM HAD ORDER FROM MD TO DISCUSS DCP. PATIENT CONSENTS TO SPEAK WITH CM. SHE WAS ADMITT[facility] FROM [facility]. SHE WOULD LIKE TO DISCHARGE TO HER SISTER'S HOME AT DISCHARGE. SHE STATES SHE WILL NEED TO SPEAK WITH HER SISTER SHE HAS HER OWN MEDICAL ISSUES. HER SISTER IS ALAN LEE. PATIENT REPORTS SHE HAS A CELL PHONE [phone]. DISCHARGE PLAN IS PENDING. WILL NEED TO FOLLOW UP WITH SHIRLEY AND HER SISTER. DCPIA - Discharge Planning Initial Assessment Updated by [id number]: Bolivar Pink on 12/19/18 4:28 pm * Is the patient Alert and Oriented? Yes * How many steps to enter\exit or inside your home? NONE * PCP DR. ZUÑIGA * [facility] * Preadmission Environment Runstitching Machine Operator Acute Care Facility * Facility Name [facility] * ADLs Partial Dependent * Partial ADLs (Assistance needed) Ambulation Bathing Medication Management Transfers * Equipment Other * Other Equipment ALL MEDICAL EQUIPMENT PROVIDED BY THE FACILITY * List name and contact numbers for known caregivers / representatives who currently or will assist patient after discharge: ALAN LEE, , * Verbal permission to speak to the caregivers and representatives has been obtained from the patient. Yes * Community resources currently utilized None * Please name any agencies selected above. NONE * Additional services required to return to the preadmission environment? No * Can the patient safely return to the preadmission environment? Yes * Has this patient been hospitalized within the prior 30 days at any hospital? No Coverage Notice Reviewer: [id number] Pink Notice Issued Date-Time: 12/19/2018 11:05 Notice Type: Patient Choice Letter Notice Delivered To: Family Member Relationship to Patient: Private Investigator Name: ALAN LEE Delivery Method: PHONE - Phone Becca Days: Prior Verbal Notification: Recipient Understood Notice: Yes Recipient Signature: Med Rec Note Co-signed by Attending: Coverage Notice Comment: SHIRLEY ROSE RETURN TO LTC Reviewer: JEFFERSON Pink Notice Issued Date-Time: 12/19/2018 14:30 Notice Type: IM Discharge Notice Notice Delivered To: Family Member Relationship to Patient: Private Investigator Name: ALAN LEE Delivery Method: PHONE - Phone Becca Days: Prior Verbal Notification: Recipient Understood Notice: Yes Recipient Signature: Med Rec Note Co-signed by Attending: Coverage Notice Comment: HAND DELIVERED COPY TO PT IN ROOM. Reviewer: [id number] Pink Notice Issued Date-Time: 12/21/2018 9:00 Notice Type: IM Discharge Notice Notice Delivered To: Patient Relationship to Patient: Private Investigator Name: Delivery Method: HAND - Hand Delivered Becca Days: Prior Verbal Notification: Recipient Understood Notice: Yes Recipient Signature: Yes Med Rec Note Co-signed by Attending: Coverage Notice Comment: Reviewer: [id number] Pink Notice Issued Date-Time: 12/19/2018 14:30 Notice Type: IM Discharge Notice Notice Delivered To: Patient Relationship to Patient: Private Investigator Name: Delivery Method: HAND - Hand Delivered Becca Days: Prior Verbal Notification: Recipient Understood Notice: Yes Recipient Signature: Med Rec Note Co-signed by Attending: Coverage Notice Comment: PT REPORTS INABILITY TO SIGN ANYTHING Last DP export: 12/21/18 8:00 am Patient Name: LIZZIE HOLLOWAY Page [id number] at 0928 All edits/amendments must be made on the electronic document DICTATION DATE: 12/21/18927 OPHTHALMIC ASSISTANT: ARNEL 12/21/18927 RPT#: [id number] DC DATE: STATUS: ADM IN [facility] [address] [place] [address] END OF REPORT
[2018-12-21 09:34] VITALS: BP 116/59
[2018-12-21 13:21] VITALS: BP 95/41
[2018-12-21] MEDS ORDERED: BROVANA15 MCG/2 M INH (14:31)
[2018-12-21] MEDS ORDERED: SINGULAIR10 MG PO (14:32)
[2018-12-21] MEDS ORDERED: MUCINEX DM ER1 EAC1 PO (14:32)
[2018-12-21] MEDS ORDERED: Tessalon Perle PO (14:32)
[2018-12-21] MEDS ORDERED: PULMICORT0.5 MG/21 UPD (14:32)
[2018-12-21] MEDS ORDERED: DALIRESP500 MCG PO (14:32)
--- NOTE | 2018-12-21 15:02 | NUR ---
I have reviewed this patient and I concur with the Shift Assessment completed by the Licensed Practical Nurse today this shift.
--- NOTE | 2018-12-21 15:30 | MORECARE ---
CASE MANAGEMENT DISCHARGE SUMMARY PATIENT: LIZZIE HOLLOWAY UNIT: [id number] ADM DATE: 12/13/18 AGE: 78 : 41 SEX: F ROOM/BED: D.2815 AUTHOR: MATT,DOC PHYSICIAN: REFERRING PHYSICIAN: VICKEY ORTIZ MD DATE OF SERVICE: 12/21/18 Discharge Plan Patient Name: LIZZIE HOLLOWAY Facility: [facility]:[place] : 1940 Planned Disposition: Nursing Facility ZOFIA Cert Anticipated Discharge Date: 12/21/18 Discharge Date: Expected LOS: 8 Initial Reviewer: [id number] Initial Review Date: 12/19/2018 Generated: 12/21/18 4:30 pm Comments DCP- Discharge Planning Updated by [id number]: Bolivar Pink on 12/21/18 8:[address] Patient Name: LIZZIE HOLLOWAY Encounter No: [id number] : 1940 Primary Insurance: MEDICARE A & B Anticipated DC Date: 12-21-2018 Planned Disposition: Nursing Facility ZOFIA Cert External Planned Provider: [facility], LONG TERM CARE MEDICAID BED DCP follow-up note: CM MET WITH PT IN ROOM WHO IS STILL WILLING FOR DISCHARGE BACK TO [facility]. CM PROVIDED AND DISCUSSED IMPORTANT MESSAGE FROM MEDICARE. CM FAXED UPDATE TO [facility] VIA [employer] AT [phone]. FOR DISCHARGE, FAX DISCHARGE INFORMATION TO [facility] AT [phone]. NURSE REPORT TO BE CALLED TO [facility] AT [phone]. [facility] TO ARRANGE VAN TRANSPORTATION. Bolivar Pink CASE CHELSY DCP- Discharge Planning Updated by [id number]: Bolivar Pink on 12/19/18 3:[address] Patient Name: LIZZIE HOLLOWAY Encounter No: [id number] : 1940 Primary Insurance: MEDICARE A & B Anticipated DC Date: Planned Disposition: Nursing Facility ZOFIA Cert External Planned Provider: [facility], ECONOMIC HISTORIAN CARE MEDICAID BED DCP follow-up note: CM SPOKE TO PT'S SISTER VIA PHONE, ALAN LEE, , WHO INFORMED CM THAT SHE TOOK CARE OF PT FOR 10 YEARS AT HOME. PT IS NOW A TOTAL CARE PT AND WILL HAVE TO RETURN TO [facility]. ALAN GUARDADO'S PT AT LEAST THREE TIMES PER WEEK AT THE FACILITY AND IS SATISFIED WITH CARE RECEIVED THERE. CHOICE LETTER COMPLETED VIA PHONE. CM MET WITH PT LATER IN THE DAY, DISCUSSED DISCHARGE PLANNING. PT WAS HOPEFUL SHE COULD GO HOME BUT UNDERSTANDS THAT HER SISTER CANNOT CARE FOR HER. ALAN GRIMALDO CONTACTED VIA PHONE, CHOICE DISCUSSED, PROVIDER LISTING LEFT WITH PT. CHOICE COMPLETED VIA PHONE FOR [facility]. CM PROVIDED AND DISCUSSED IMPORTANT MESSAGE FROM MEDICARE. PT REPORTS INABILITY TO SIGN ANYTHING. ALAN ASKED TO BE NOTIFIED WHEN PT DISCHARGES BACK TO [facility]. CM NOTIFIED SHAY OF [facility], , WHO VERIFIED PT IS IN ECONOMIC HISTORIAN CARE BED AT FACILITY. CM FAXED UPDATE TO [facility] VIA [employer] AT [phone]. FOR DISCHARGE, FAX DISCHARGE INFORMATION TO [facility] AT [phone]. NURSE REPORT TO BE CALLED TO [facility] AT [phone]. [facility] TO ARRANGE VAN TRANSPORTATION. Bolivar Pink, CASE MANAGEMENT DCP- Discharge Planning Updated by [id number]: Aileen Salinas on 12/18/18 5:[address] CM MET WITH THE PATIENT AT THE BEDSIDE. EXPLAINED CM HAD ORDER FROM MD TO DISCUSS DCP. PATIENT CONSENTS TO SPEAK WITH CM. SHE WAS ADMITTED FROM [facility]. SHE WOULD LIKE TO DISCHARGE TO HER SISTER'S HOME AT DISCHARGE. SHE STATES SHE WILL NEED TO SPEAK WITH HER SISTER SHE HAS HER OWN MEDICAL ISSUES. HER SISTER IS ALAN LEE. PATIENT REPORTS SHE HAS A CELL PHONE [phone]. DISCHARGE PLAN IS PENDING. WILL NEED TO FOLLOW UP WITH SHIRLEY AND HER SISTER. DCPIA - Discharge Planning Initial Assessment Updated by [id number]: Bolivar Pink on 12/19/18 4:28 pm * Is the patient Alert and Oriented? Yes * How many steps to enter\exit or inside your home? NONE * PCP DR. ZUÑIGA * [facility] * Preadmission Environment Hvac Design Mechanical Engineer Acute Care Facility * Facility Name [facility] * ADLs Partial Dependent * Partial ADLs (Assistance needed) Ambulation Bathing Medication Management Transfers * Equipment Other * Other Equipment ALL MEDICAL EQUIPMENT PROVIDED BY THE FACILITY * List name and contact numbers for known caregivers / representatives who currently or will assist patient after discharge: ALAN LEE, , * Verbal permission to speak to the caregivers and representatives has been obtained from the patient. Yes * Community resources currently utilized None * Please name any agencies selected above. NONE * Additional services required to return to the preadmission environment? No * Can the patient safely return to the preadmission environment? Yes * Has this patient been hospitalized within the prior 30 days at any hospital? No Coverage Notice Reviewer: JEFFERSON Pink Notice Issued Date-Time: 12/19/2018 11:05 Notice Type: Patient Choice Letter Notice Delivered To: Family Member Relationship to Patient: Supervising Film Or Videotape Editor Name: ALAN LEE Delivery Method: PHONE - Phone Becca Days: Prior Verbal Notification: Recipient Understood Notice: Yes Recipient Signature: Med Rec Note Co-signed by Attending: Coverage Notice Comment: SHIRLEY ROSE RETURN TO LTC Reviewer: JEFFERSON Pink Notice Issued Date-Time: 12/19/2018 14:30 Notice Type: IM Discharge Notice Notice Delivered To: Family Member Relationship to Patient: Supervising Film Or Videotape Editor Name: ALAN LEE Delivery Method: PHONE - Phone Becca Days: Prior Verbal Notification: Recipient Understood Notice: Yes Recipient Signature: Med Rec Note Co-signed by Attending: Coverage Notice Comment: HAND DELIVERED COPY TO PT IN ROOM. Reviewer: JEFFERSON Pink Notice Issued Date-Time: 12/19/2018 14:30 Notice Type: IM Discharge Notice Notice Delivered To: Patient Relationship to Patient: Supervising Film Or Videotape Editor Name: Delivery Method: HAND - Hand Delivered Becca Days: Prior Verbal Notification: Recipient Understood Notice: Yes Recipient Signature: Med Rec Note Co-signed by Attending: Coverage Notice Comment: PT REPORTS INABILITY TO SIGN ANYTHING Reviewer: JEFFERSON Pink Notice Issued Date-Time: 12/21/2018 9:00 Notice Type: IM Discharge Notice Notice Delivered To: Patient Relationship to Patient: Supervising Film Or Videotape Editor Name: Delivery Method: HAND - Hand Delivered Becca Days: Prior Verbal Notification: Recipient Understood Notice: Yes Recipient Signature: Yes Med Rec Note Co-signed by Attending: Coverage Notice Comment: Last DP export: 12/21/18 8:28 am Patient Name: LIZZIE HOLLOWAY Page [id number] at 1530 All edits/amendments must be made on the electronic document DICTATION DATE: 12/21/181528 PHARMACY STUDENT: ARNEL 12/21/181528 RPT#: [id number] DC DATE: STATUS: ADM IN [facility] [address] [place] [address] END OF REPORT
--- NOTE | 2018-12-21 15:31 | NUR ---
DISCHARGE INSTRUCTIONS GIVEN TO PT. CHART COPY SIGNED. RIGHT FA 20G IV DC'D WITH CATH INTACT. TELEMETRY DC'D.
--- NOTE | 2018-12-21 15:40 | MORECARE ---
CASE MANAGEMENT DISCHARGE SUMMARY PATIENT: LIZZIE HOLLOWAY UNIT: [id number] ADM DATE: 12/13/18 AGE: 78 : 41 SEX: F ROOM/BED: D.6569 AUTHOR: MATT,DOC PHYSICIAN: REFERRING PHYSICIAN: VICKEY ORTIZ MD DATE OF SERVICE: 12/21/18 Discharge Plan Patient Name: LIZZIE HOLLOWAY Facility: [facility] : 1940 Planned Disposition: Nursing Facility [facility] Cert Anticipated Discharge Date: 12/21/18 Discharge Date: Expected LOS: 8 Initial Reviewer: [id number] Initial Review Date: 12/19/2018 Generated: 12/21/18 4:39 pm Comments DCP- Discharge Planning Updated by [id number]: Bolivar Pink on 12/21/18 2:[address] Patient Name: LIZZIE HOLLOWAY Encounter No: [id number] : 1940 Primary Insurance: MEDICARE A & B Anticipated DC Date: 12-21-2018 Planned Disposition: Nursing Facility [facility] Cert External Planned Provider:[facility], MEDICARE REHAB BED DCP follow-up note: RECEIVED DISCHARGE ORDER, FAXED DISCHARGE TO [facility]IA [facility] AT [phone]. SHAY CONTACTED CM AND INFORMED THAT PT WILL RETURN TO SKILLED BED, VAN TO GERIATRIC NURSING ASSISTANT AT 4:30PM TODAY. CALLED PT'S SISTER, ALAN RUANO, , INFORMED OF DISCHARGE AND ALAN INFORMED CM THAT SHE IS OK WITH DISCHARGE BACK TO [facility] IF PT IS STABLE FOR DISCHARGE. ALAN WILL COME AND SEE PT PRIOR TO DISCHARGE TODAY AT HOSPITAL. NURSE REPORT TO BE CALLED TO [facility] AT [phone]. [facility] TO ARRANGE VAN TRANSPORTATION FOR 4:30PM TODAY. CHECO Rodriguez DCP- Discharge Planning Updated by [id number]: Bolivar Pink on 12/21/18 8:[address] Patient Name: LIZZIE HOLLOWAY Encounter No: [id number] : 1940 Primary Insurance: MEDICARE A & B Anticipated DC Date: 03-06-2019 Planned Disposition: Nursing Facility [facility] Cert External Planned Provider: [facility], INTERMEDIATE CARE MEDICAID BED DCP follow-up note: CM MET WITH PT IN ROOM WHO IS STILL WILLING FOR DISCHARGE BACK TO INTERMEDIATE CARE AT [facility]. CM PROVIDED AND DISCUSSED IMPORTANT MESSAGE FROM MEDICARE. CM FAXED UPDATE TO [facility] VIA [employer] AT [phone]. FOR DISCHARGE, FAX DISCHARGE INFORMATION TO [facility] AT [phone]. NURSE REPORT TO BE CALLED TO [facility] AT [phone]. [facility] TO ARRANGE VAN TRANSPORTATION. Bolivar Pink, CASE MANAGEMENT DCP- Discharge Planning Updated by [id number]: Bolivar Pink on 12/19/18 3:[address] Patient Name: LIZZIE HOLLOWAY Encounter No: [id number] : 1940 Primary Insurance: MEDICARE A & B Anticipated DC Date: Planned Disposition: Nursing Facility [facility] Cert External Planned Provider: [facility], INTERMEDIATE CARE MEDICAID BED DCP follow-up note: CM SPOKE TO PT'S SISTER VIA PHONE, ALANTonie LEE, , WHO INFORMED CM THAT SHE TOOK CARE OF PT FOR 10 YEARS AT HOME. PT IS NOW A TOTAL CARE PT AND WILL HAVE TO RETURN TO [facility]. ALAN GUARDADO'S PT AT LEAST THREE TIMES PER WEEK AT THE FACILITY AND IS SATISFIED WITH CARE RECEIVED THERE. CHOICE LETTER COMPLETED VIA PHONE. CM MET WITH PT LATER IN THE DAY, DISCUSSED DISCHARGE PLANNING. PT WAS HOPEFUL SHE COULD GO HOME BUT UNDERSTANDS THAT HER SISTER CANNOT CARE FOR HER. ALAN GRIMALDO CONTACTED VIA PHONE, CHOICE DISCUSSED, PROVIDER LISTING LEFT WITH PT. CHOICE COMPLETED VIA PHONE FOR [facility]. CM PROVIDED AND DISCUSSED IMPORTANT MESSAGE FROM MEDICARE. PT REPORTS INABILITY TO SIGN ANYTHING. ALAN ASKED TO BE NOTIFIED WHEN PT DISCHARGES BACK TO CARE HOME. CM NOTIFIED SHAY OF [facility], , WHO VERIFIED PT IS IN FORKLIFT DRIVER CARE BED AT FACILITY. CM FAXED UPDATE TO [facility]IA [employer] AT [phone]. FOR DISCHARGE, FAX DISCHARGE INFORMATION TO [facility] AT [phone]. NURSE REPORT TO BE CALLED TO [facility] AT [phone]. [facility] TO ARRANGE VAN TRANSPORTATION. Bolivar Pink, CASE MANAGEMENT DCP- Discharge Planning Updated by [id number]: Aileen Salinas on 12/18/18 5:[address] CM MET WITH THE PATIENT AT THE BEDSIDE. EXPLAINED CM HAD ORDER FROM MD TO DISCUSS DCP. PATIENT CONSENTS TO SPEAK WITH CM. SHE WAS ADMITTED FROM [facility]. SHE WOULD LIKE TO DISCHARGE TO HER SISTER'S HOME AT DISCHARGE. SHE STATES SHE WILL NEED TO SPEAK WITH HER SISTER SHE HAS HER OWN MEDICAL ISSUES. HER SISTER IS ALAN LEE. PATIENT REPORTS SHE HAS A CELL PHONE [phone]. DISCHARGE PLAN IS PENDING. WILL NEED TO FOLLOW UP WITH SHIRLEY AND HER SISTER. DCPIA - Discharge Planning Initial Assessment Updated by [id number]: Bolivar Pink on 12/19/18 4:28 pm * Is the patient Alert and Oriented? Yes * How many steps to enter\exit or inside your home? NONE * PCP DR. ZUÑIGA * [facility] * Preadmission Environment Brand Representative Acute Care Facility * Facility Name [facility] * ADLs Partial Dependent * Partial ADLs (Assistance needed) Ambulation Bathing Medication Management Transfers * Equipment Other * Other Equipment ALL MEDICAL EQUIPMENT PROVIDED BY THE FACILITY * List name and contact numbers for known caregivers / representatives who currently or will assist patient after discharge: ALAN LEE, SISTER, * Verbal permission to speak to the caregivers and representatives has been obtained from the patient. Yes * Community resources currently utilized None * Please name any agencies selected above. NONE * Additional services required to return to the preadmission environment? No * Can the patient safely return to the preadmission environment? Yes * Has this patient been hospitalized within the prior 30 days at any hospital? No Coverage Notice Reviewer: [id number] Rory Pink Notice Issued Date-Time: 12/19/2018 11:05 Notice Type: Patient Choice Letter Notice Delivered To: Family Member Relationship to Patient: Sister Packager Hand Name: ALAN LEE Delivery Method: PHONE - Phone Becca Days: Prior Verbal Notification: Recipient Understood Notice: Yes Recipient Signature: Med Rec Note Co-signed by Attending: Coverage Notice Comment: [facility] RETURN TO LTC Reviewer: [id number] Rory Pink Notice Issued Date-Time: 12/19/2018 14:30 Notice Type: IM Discharge Notice Notice Delivered To: Family Member Relationship to Patient: Sister Packager Hand Name: ALAN LEE Delivery Method: PHONE - Phone Becca Days: Prior Verbal Notification: Recipient Understood Notice: Yes Recipient Signature: Med Rec Note Co-signed by Attending: Coverage Notice Comment: HAND DELIVERED COPY TO PT IN ROOM. Reviewer: [id number] Pink Notice Issued Date-Time: 12/21/2018 9:00 Notice Type: IM Discharge Notice Notice Delivered To: Patient Relationship to Patient: Packager Hand Name: Delivery Method: HAND - Hand Delivered Becca Days: Prior Verbal Notification: Recipient Understood Notice: Yes Recipient Signature: Yes Med Rec Note Co-signed by Attending: Coverage Notice Comment: Reviewer: JEFFERSON Pink Notice Issued Date-Time: 12/19/2018 14:30 Notice Type: IM Discharge Notice Notice Delivered To: Patient Relationship to Patient: Packager Hand Name: Delivery Method: HAND - Hand Delivered Becca Days: Prior Verbal Notification: Recipient Understood Notice: Yes Recipient Signature: Med Rec Note Co-signed by Attending: Coverage Notice Comment: PT REPORTS INABILITY TO SIGN ANYTHING Last DP export: 12/21/18 8:28 am Patient Name: LIZZIE HOLLOWAY Page [phone] at 1540 All edits/amendments must be made on the electronic document DICTATION DATE: 12/21/181538 SPRAY I PAINTER: ARNEL 12/21/181538 RPT#: [id number] DC DATE: STATUS: ADM IN [facility] [address] [place] [address] END OF REPORT
--- NOTE | 2018-12-21 15:47 | NUR ---
REPORT CALLED TO JULIO VARGHESE AND ALSO STATED TO HER PT DOES NOT HAVE AN O2 TANK OR ANY CLOTHES AND SHE STATES SHE WILL CATCH THE TANK ERECTOR AND GIVE IT TO HIM.
--- NOTE | 2018-12-21 17:13 | NUR ---
ABDOMINAL BRUSIING WORSENING ARTHUR POULTRY VACCINATOR ORDERING ABD. US AND CANCELING DISCHARGE. CALLED [facility] AND STATED TO THEM THEY ARE CANCELING DISCHARGE THEY VERBALIZED UNDERSTANDING.
[2018-12-21 18:02] LABS: HEMATOCRIT 27.1 % (36.0-48.0); HEMOGLOBIN 8.3 g/dL (12-16); MCH 29.3 pg (26.0-34.0); MCHC 30.6 g/dL (31.0-37.0); MCV 95.8 fL (80.0-100.0); MEAN PLATELET VOLUME 11.1 fL (7.4-10.4); PLATELET COUNT 364 10x3/uL (130-400); RBC 2.83 10x6/uL (4.00-5.40); RDW 15.8 % (11.5-14.5); WBC 20.1 10x3/uL (4.8-10.8)
--- NOTE | 2018-12-21 18:09 | NUR ---
RIGHT FA 20G IV INSERTED ON X2 ATTEMPT.
[2018-12-21 18:43] LABS: LYMPHOCYTES 22 % (15-50); NEUTROPHILS 78 % (40-80); PLATELET ESTIMATE NORMAL
--- NOTE | 2018-12-21 19:36 | NUR ---
PT RESTING IN BED. ASSISTED WITH REPOSITIONING. SET HOB UP AND MADE PT THICKENED LIQUID WATER. PT IS AAO. 2L O2 NC. LEFT ARM ELEVATED ON PILLOW. NAME AND DATE PLACED ON BOARD. NO S/S OF DISTRESS. BEDLOW AND CALL LIGHT IN REACH. WILL CPOC
[2018-12-21 20:00] VITALS: BP 93/56
--- NOTE | 2018-12-21 20:58 | NUR ---
NIGHT MEDS GIVEN. PT TOOK ONE BY ONE WITH THICKENED WATER INSTEAD OF CRUSHED WITH APPLE SAUCE PT ON PHONE WITH SISTER GIVING HER AN UPDATE. TYLENOL GIVEN FOR PAIN IN ABDOMEN. LANTUS GIVEN ORDERED. NO REGULAR INSULIN GIVEN PT REFUSED. PT HAS A COUGH THAT IS NOT PRODUCTIVE AT THIS TIME. 2L O2 NC. PT HAS NO S/S OF DISTRESS. BEDLOW AND CALL LIGHT INREACH. WILL CPOC
[2018-12-22] VITALS (47 sets, daily range): BP systolic 54–142; BP diastolic 26–75
--- NOTE | 2018-12-22 00:28 | NUR ---
PT COMPLAINS OF RIGHT LOWER ABDOMEN PAIN. BRUISING NOTED, TIGHT AND TENDER. MEASURED AREA. 40 INCHES FROM UNDER ABDOMINAL FOLD TO BELLY BUTTON. MARKED AREA. US AND XRAY DONE TODAY. PT HAS NO S/S OF DISTRESS. BEDLOW AND CALL LIGHT INREACH. PT WILL CALL FOR ASSIST WHEN NEEDED. WILL CPOC
--- NOTE | 2018-12-22 03:26 | NUR ---
PT TURNED FROM RIGHT SIDE TO LEFT. PT ABDOMEN IS 13.5 PT STILL COMPLAINS OF ABDOMEN PAIN. PT HAS NO S/S OF DISTRESS. WILL CPOC
--- NOTE | 2018-12-22 05:33 | NUR ---
PT REPOSITIONED AND CLEANED. NO CHANGES. PT HAS NOURISHMENT AT BEDSIDE. BEDLOW AND CALL LIGHT IN REACH. NO S/S OF DISTRESS. WILL CPOC
[2018-12-22 06:36] LABS: BASOPHILS 0.1 % (0-2); EOSINOPHILS 0.2 % (0-7); HEMATOCRIT 24.3 % (36.0-48.0); HEMOGLOBIN 7.5 g/dL (12-16); IMMATURE GRANULOCYTES 3.6 % (0-5); LYMPHOCYTES 16.9 % (15-50); MCH 29.2 pg (26.0-34.0); MCHC 30.9 g/dL (31.0-37.0); MCV 94.6 fL (80.0-100.0); MEAN PLATELET VOLUME 11.4 fL (7.4-10.4); MONOCYTES 13.8 % (2-11); NEUTROPHILS 65.4 % (40-80); PLATELET COUNT 438 10x3/uL (130-400); RBC 2.57 10x6/uL (4.00-5.40); RDW 15.8 % (11.5-14.5); WBC 28.6 10x3/uL (4.8-10.8)
--- NOTE | 2018-12-22 07:35 | NUR ---
PT PULLED UP IN BED AND REPOSITIONED. PT IS PALE. DENIES ANY NEEDS. NOURISHMENT IN REACH. FSBS IS 91 CALL LIGHT IN REACH. WILL CPOC
[2018-12-22 07:39] LABS: ALBUMIN 2.4 g/dL (3.4-5.0); ANION GAP 14.1 mmol/L (8-16); BILIRUBIN - TOTAL 0.58 mg/dL (0.2-1.3); CALCIUM 7.9 mg/dL (8.5-10.1); CARBON DIOXIDE 29.1 mmol/L (21.0-32.0); CREATININE - SERUM 2.2 mg/dL (0.6-1.3); PROTEIN - SERUM 5.8 g/dL (6.4-8.2)
[2018-12-22 07:41] LABS: POTASSIUM - SERUM 6.2 mmol/L (3.5-5.1)
--- NOTE | 2018-12-22 07:56 | NUR ---
GINA GIBSON PERL SOFTWARE ENGINEER ABOUT PT'S POTASSIUM 6.2, BUN 51, CREATNINE 2.2, AND PT'S ABDOMINAL PAIN.
--- NOTE | 2018-12-22 08:00 | NUR ---
SPOKE WITH ARTHUR POLLACK AND SHE ORDERED 1/2NS AT 100, CONSULT RENAL, 1 AMP D50 THEN GIVE 10 UNITS OF INSULIN, KAYEXALATE 30MG PO ONE TIME, AND 1 AMP CALCIUM GLUCONATE.
--- NOTE | 2018-12-22 09:07 | MORECARE ---
CASE MANAGEMENT DISCHARGE SUMMARY PATIENT: LIZZIE HOLLOWAY UNIT: [id number] ADM DATE: 12/13/18 AGE: 78 : 41 SEX: F ROOM/BED: D.8494 AUTHOR: MATT,DOC PHYSICIAN: REFERRING PHYSICIAN: VICKEY ORTIZ MD DATE OF SERVICE: 12/22/18 Discharge Plan Patient Name: LIZZIE HOLLOWAY Facility: [facility] : 1940 Planned Disposition: Nursing Facility [facility] Cert Anticipated Discharge Date: 12/21/18 Discharge Date: Expected LOS: 8 Initial Reviewer: [id number] Initial Review Date: 12/19/2018 Generated: 12/22/18 10:07 am Comments DCP- Discharge Planning Updated by [id number]: Bolivar Pink on 12/21/18 2:[address] Patient Name: LIZZIE HOLLOWAY Encounter No: [id number] : 1940 Primary Insurance: MEDICARE A & B Anticipated DC Date: 12-21-2018 Planned Disposition: Nursing Facility [facility] Cert External Planned Provider:[facility], MEDICARE REHAB BED DCP follow-up note: RECEIVED DISCHARGE ORDER, FAXED DISCHARGE TO [facility] VIA [facility] AT [phone]. [facility]AY CONTACTED CM AND INFORMED THAT PT WILL RETURN TO SKILLED BED, VAN TO BUTCHER'S ASSISTANT AT 4:30PM TODAY. CALLED PT'S SISTER, ALAN RUANO, , INFORMED OF DISCHARGE AND ALAN INFORMED CM THAT SHE IS OK WITH DISCHARGE BACK TO [facility] IF PT IS STABLE FOR DISCHARGE. ALAN WILL COME AND SEE PT PRIOR TO DISCHARGE TODAY AT HOSPITAL. NURSE REPORT TO BE CALLED TO [facility] AT [phone]. [facility] TO ARRANGE VAN TRANSPORTATION FOR 4:30PM TODAY. CHECO Rodriguez DCP- Discharge Planning Updated by [id number]: Bolivar Pink on 12/21/18 8:[address] Patient Name: LIZZIE HOLLOWAY Encounter No: [id number] : 1940 Primary Insurance: MEDICARE A & B Anticipated DC Date: 03-06-2019 Planned Disposition: Nursing Facility [facility] Cert External Planned Provider: [facility], FIRESTOPPER INSTALLER CARE MEDICAID BED DCP follow-up note: CM MET WITH PT IN ROOM WHO IS STILL WILLING FOR DISCHARGE BACK TO RETIREMENT CARE AT [facility]. CM PROVIDED AND DISCUSSED IMPORTANT MESSAGE FROM MEDICARE. CM FAXED UPDATE TO [facility] VIA [employer] AT [phone]. FOR DISCHARGE, FAX DISCHARGE INFORMATION TO [facility] AT [phone]. NURSE REPORT TO BE CALLED TO [facility] AT [phone]. [facility] TO ARRANGE VAN TRANSPORTATION. Bolivar Pink, CASE MANAGEMENT DCP- Discharge Planning Updated by [id number]: Bolivar Pink on 12/19/18 3:[address] Patient Name: LIZZIE HOLLOWAY Encounter No: [id number] : 1940 Primary Insurance: MEDICARE A & B Anticipated DC Date: Planned Disposition: Nursing Facility [facility] Cert External Planned Provider: [facility], RETIREMENT CARE MEDICAID BED DCP follow-up note: CM SPOKE TO PT'S SISTER VIA PHONE, ALANTonie LEE, , WHO INFORMED CM THAT SHE TOOK CARE OF PT FOR 10 YEARS AT HOME. PT IS NOW A TOTAL CARE PT AND WILL HAVE TO RETURN TO [facility]. ALAN GUARDADO'S PT AT LEAST THREE TIMES PER WEEK AT THE FACILITY AND IS SATISFIED WITH CARE RECEIVED THERE. CHOICE LETTER COMPLETED VIA PHONE. CM MET WITH PT LATER IN THE DAY, DISCUSSED DISCHARGE PLANNING. PT WAS HOPEFUL SHE COULD GO HOME BUT UNDERSTANDS THAT HER SISTER CANNOT CARE FOR HER. ALAN GRIMALDO CONTACTED VIA PHONE, CHOICE DISCUSSED, PROVIDER LISTING LEFT WITH PT. CHOICE COMPLETED VIA PHONE FOR [facility]. CM PROVIDED AND DISCUSSED IMPORTANT MESSAGE FROM MEDICARE. PT REPORTS INABILITY TO SIGN ANYTHING. ALAN ASKED TO BE NOTIFIED WHEN PT DISCHARGES BACK TO [facility]. CM NOTIFIED SHAY OF [facility], , WHO VERIFIED PT IS IN RETIREMENT CARE BED AT FACILITY. CM FAXED UPDATE TO [facility] [employer]IA [employer] AT [phone]. FOR DISCHARGE, FAX DISCHARGE INFORMATION TO [facility] AT [phone]. NURSE REPORT TO BE CALLED TO [facility] AT [phone]. [facility] TO ARRANGE VAN TRANSPORTATION. Bolivar Pink, CASE MANAGEMENT DCP- Discharge Planning Updated by [id number]: Aileen Salinas on 12/18/18 5:[address] CM MET WITH THE PATIENT AT THE BEDSIDE. EXPLAINED CM HAD ORDER FROM MD TO DISCUSS DCP. PATIENT CONSENTS TO SPEAK WITH CM. SHE WAS ADMITTED FROM [facility]. SHE WOULD LIKE TO DISCHARGE TO HER SISTER'S HOME AT DISCHARGE. SHE STATES SHE WILL NEED TO SPEAK WITH HER SISTER SHE HAS HER OWN MEDICAL ISSUES. HER SISTER IS ALAN LEE. PATIENT REPORTS SHE HAS A CELL PHONE [phone]. DISCHARGE PLAN IS PENDING. WILL NEED TO FOLLOW UP WITH SHIRLEY AND HER SISTER. DCPIA - Discharge Planning Initial Assessment Updated by [id number]: Bolivar Pink on 12/19/18 4:28 pm * Is the patient Alert and Oriented? Yes * How many steps to enter\exit or inside your home? NONE * PCP DR. ZUÑIGA * [facility] * Preadmission Environment Custody Assistant Acute Care Facility * Facility Name [facility] * ADLs Partial Dependent * Partial ADLs (Assistance needed) Ambulation Bathing Medication Management Transfers * Equipment Other * Other Equipment ALL MEDICAL EQUIPMENT PROVIDED BY THE FACILITY * List name and contact numbers for known caregivers / representatives who currently or will assist patient after discharge: ALAN LEE, SISTER, * Verbal permission to speak to the caregivers and representatives has been obtained from the patient. Yes * Community resources currently utilized None * Please name any agencies selected above. NONE * Additional services required to return to the preadmission environment? No * Can the patient safely return to the preadmission environment? Yes * Has this patient been hospitalized within the prior 30 days at any hospital? No Coverage Notice Reviewer: [id number] Rory Pink Notice Issued Date-Time: 12/19/2018 11:05 Notice Type: Patient Choice Letter Notice Delivered To: Family Member Relationship to Patient: Sister Pig Sticker Name: ALAN LEE Delivery Method: PHONE - Phone Becca Days: Prior Verbal Notification: Recipient Understood Notice: Yes Recipient Signature: Med Rec Note Co-signed by Attending: Coverage Notice Comment: [facility] RETURN TO LTC Reviewer: [id number] Rory Pink Notice Issued Date-Time: 12/19/2018 14:30 Notice Type: IM Discharge Notice Notice Delivered To: Family Member Relationship to Patient: Sister Pig Sticker Name: ALAN LEE Delivery Method: PHONE - Phone Becca Days: Prior Verbal Notification: Recipient Understood Notice: Yes Recipient Signature: Med Rec Note Co-signed by Attending: Coverage Notice Comment: HAND DELIVERED COPY TO PT IN ROOM. Reviewer: [id number] Pink Notice Issued Date-Time: 12/21/2018 9:00 Notice Type: IM Discharge Notice Notice Delivered To: Patient Relationship to Patient: Pig Sticker Name: Delivery Method: HAND - Hand Delivered Becca Days: Prior Verbal Notification: Recipient Understood Notice: Yes Recipient Signature: Yes Med Rec Note Co-signed by Attending: Coverage Notice Comment: Reviewer: [id number] Pink Notice Issued Date-Time: 12/19/2018 14:30 Notice Type: IM Discharge Notice Notice Delivered To: Patient Relationship to Patient: Pig Sticker Name: Delivery Method: HAND - Hand Delivered Becca Days: Prior Verbal Notification: Recipient Understood Notice: Yes Recipient Signature: Med Rec Note Co-signed by Attending: Coverage Notice Comment: PT REPORTS INABILITY TO SIGN ANYTHING Last DP export: 12/21/18 2:40 pm Patient Name: LIZZIE HOLLOWAY Page [phone] at 0907 All edits/amendments must be made on the electronic document DICTATION DATE: 12/22/18906 [employer] REP: ARNEL 12/22/18906 RPT#: [id number] DC DATE: STATUS: ADM IN [facility] [address] [place] [address] END OF REPORT
--- NOTE | 2018-12-22 10:50 | NUR ---
1050: RAP[facility] RESPONSE CALLED. PT NOT AROUSING TO STIMULATION AND ICE COLD. RT STARTED BAGGING PT. DR. IRVING HERNÁNDEZ MD WANTED TO INTUBATE PT AND PT'S FAMILY REFUSED AND WANTS PT TO BE DNR. 1055: PT'S FAMILY STATES THEY DO NOT PT TO BE INTUBATED AND THEY WANT HER TO BE A DNR. DNR SHEET SIGNED BY EVI LEWIS AND KRISH RN. MILANA LEWIS SPOKE WITH ARTHUR POLLACK AND NOTIFIED HER OF [facility] RESPONSE AND CODE CALLED AND PT'S FAMILY WANTING HER TO BE A DNR. 1100: PT'S BS 174. 1GM VANC AND 1GM OF MERROPENEUM ORDERED STAT CALLED AND SPOKE WITH PHARMACY AND NOTIFIED THEM. STAT CT OF THE HEAD W/O CONTRAT AND ABDOMEN W/O CONTRAST ORDERED. CALLED AND SPOKE [facility] AND NOTIFIED THEM OF STAT CT'S ORDERED. DNR STATUS PLACED IN COMPUTER. DR. LARSON AND BRIGHT SALTER CALLED ABOUT PT AND HAVE NOT RETURNED A CALL. NO FURTHER NEEDS FOR ME AT THIS TIME PT WILL TRANSFERRED TO ICU AFTER CT. FAMILY AT ROOM AWARE AND I WILL CALL REPORT TO ICU NURSE. CHART AND BELONGINGS SENT WITH PT.
--- NOTE | 2018-12-22 11:19 | NUR ---
PT TAKEN FOR CT OF THE HEAD AND ABDOMEN VIA BED BY APPLICATION DEVELOPMENT INTERN AND KRISH HOIST MECHANIC AND PT IS GOING TO ICU AFTER TO ROOM 2311.
--- NOTE | 2018-12-22 12:00 | NUR ---
REC'D PT FROM FLOOR, ASSISTED INTO ICU BED, MONITORS ON AND WORKING, LEVO AND DOPAMINE INFUSING, FAMILY AT BEDSIDE, UPDATE PROVIDED, CALL LIGHT WITHIN REACH WILL CONTINUE TO OBSERVE.
[2018-12-22 12:32] LABS: INR 1.66 (0.85-1.17)
[2018-12-22 12:37] LABS: CALCIUM 8.1 mg/dL (8.5-10.1); CREATININE - SERUM 2.4 mg/dL (0.6-1.3)
[2018-12-22 12:41] LABS: ANION GAP 22.5 mmol/L (8-16); CARBON DIOXIDE 20.6 mmol/L (21.0-32.0)
[2018-12-22 12:42] LABS: POTASSIUM - SERUM 6.1 mmol/L (3.5-5.1)
[2018-12-22 13:23] LABS: HEMATOCRIT 25.6 % (36.0-48.0); HEMOGLOBIN 7.8 g/dL (12-16)
--- NOTE | 2018-12-22 14:00 | NUR ---
NEW 22 GUAGE IV TO LEFT FOREARM.
--- NOTE | 2018-12-22 15:00 | NUR ---
PT AWAKE AND ALERT, FAMILY AT BEDSIDE, UPDATE PROVIDED. CALL LIGHT WITHIN REACH WILL CONTINUE TO OBSREVE.
[2018-12-22 18:38] LABS: ANION GAP 23.7 mmol/L (8-16); CALCIUM 7.5 mg/dL (8.5-10.1); CARBON DIOXIDE 19.5 mmol/L (21.0-32.0); CREATININE - SERUM 2.3 mg/dL (0.6-1.3)
[2018-12-22 18:41] LABS: POTASSIUM - SERUM 6.2 mmol/L (3.5-5.1)
[2018-12-22 19:09] LABS: APPEARANCE TURBID (CLEAR); BILIRUBIN NEGATIVE (NEGATIVE); COLOR YELLOW (YELLOW); GLUCOSE NEGATIVE (NEGATIVE); KETONE NEGATIVE (NEGATIVE); NITRITE NEGATIVE (NEGATIVE); PROTEIN 1+ mg/dL (NEGATIVE); UROBILINOGEN NORMAL (NORMAL); WHITE CELLS - URINE 0-5 /hpf (0-5)
[2018-12-22 19:10] LABS: AMORPHOUS SEDIMENT >1+ /lpf (NONE SEEN); BACTERIA FEW /hpf (NONE SEEN); EPITHELIAL CELLS 0-5 /hpf (0-5); MUCUS >1+ /lpf (NONE SEEN); RED CELLS - URINE 0-5 /hpf (0-5)
--- NOTE | 2018-12-22 19:21 | NUR ---
BEDSIDE SHIFT REPORT GIVEN BY DEPARTING RN. PT LAYING IN BED WITH EYES OPEN SHOWING NO SS OF DISTRESS. AAOX4. PERRLA. LEFT SIDE FLACCID. SEE ASSESSMENT FOR FULL ASSESSMENT. SAFETY MEASURES IN PLACE. CBIR.
[2018-12-22 21:29] LABS: HEMATOCRIT 35.1 % (36.0-48.0); HEMOGLOBIN 11.6 g/dL (12-16)
--- NOTE | 2018-12-22 23:03 | NUR ---
REASSESSMENT COMPLETE. NO CHANGES NOTED IN PT CONDITION. REPOSITIONED FOR COMFORT. DENIES PAIN. SAFETY MEASURES IN PLACE. CBIR.
[2018-12-23] VITALS (35 sets, daily range): BP systolic 60–160; BP diastolic 34–80
--- NOTE | 2018-12-23 01:29 | NUR ---
REPOSITIONED FOR COMFORT. SLEEPING SHOWING NO SS OF DISCOMFORT. SAFETY MEASURES IN PLACE. CBIR.
--- NOTE | 2018-12-23 07:00 | NUR ---
SHIFT ASSESSMENT COMPLETED. PT CARE ASSUMED. MONITORS ON AND WORKING. SEE FLOW SHEET FOR FURTHER DETAILS. WILL CONTINUE TO OBSERVE.
[2018-12-23 08:45] LABS: HEMATOCRIT 29.1 % (36.0-48.0); HEMOGLOBIN 9.8 g/dL (12-16); MCHC 33.7 g/dL (31.0-37.0); MEAN PLATELET VOLUME 11.5 fL (7.4-10.4); PLATELET COUNT 246 10x3/uL (130-400); RBC 3.27 10x6/uL (4.00-5.40); RDW 15.7 % (11.5-14.5)
--- NOTE | 2018-12-23 09:00 | NUR ---
PT TURNED AND REPOSITIONED FOR COMFORT, NO SIGNS/SYMPTOMS OF PAIN OR DISCOMFORT NOTED AT THIS TIME. WILL CONTINUE TO OBSERVE.
[2018-12-23 09:07] LABS: BILIRUBIN - TOTAL 0.6 mg/dL (0.2-1.3); VANCOMYCIN - RANDOM 12.2 ug/mL (10.0-20.0)
[2018-12-23 09:28] LABS: ANISOCYTOSIS OCC; LYMPHOCYTES 9 % (15-50); MONOCYTES 7 % (2-11); NEUTROPHILS 74 % (40-80); PLATELET ESTIMATE NORMAL
--- NOTE | 2018-12-23 09:30 | NUR ---
PT SUDDENLY BECAME LETHARGIC AND UNRESPONSIVE, MDS NOTIFIED, LABS DRAWN AND ABGS, FAMILY AT BEDSIDE, WILL CONTINUE TO TREAT WITH MEDS, WILL CONTINUE TO OBSERVE.
[2018-12-23 09:59] LABS: ANION GAP 17.6 mmol/L (8-16); CARBON DIOXIDE 27.5 mmol/L (21.0-32.0); CREATININE - SERUM 3.1 mg/dL (0.6-1.3); POTASSIUM - SERUM 5.1 mmol/L (3.5-5.1); PROTEIN - SERUM 4.2 g/dL (6.4-8.2)
[2018-12-23 10:00] LABS: CALCIUM 6.4 mg/dL (8.5-10.1)
--- NOTE | 2018-12-23 10:08 | NUR ---
Nutrition follow-up: Pt now in ICU s/p rapid response. Family wishes for comfort measures only and pt to transfer to floor today. RDN will monitor patients progress for any change of status.
--- NOTE | 2018-12-23 10:10 | MORECARE ---
CASE MANAGEMENT DISCHARGE SUMMARY PATIENT: LIZZIE HOLLOWAY UNIT: [id number] ADM DATE: 12/13/18 AGE: 78 : 41 SEX: F ROOM/BED: D.[facility] AUTHOR: MATT,DOC PHYSICIAN: REFERRING PHYSICIAN: VICKEY ORTIZ MD DATE OF SERVICE: 12/23/18 Discharge Plan Patient Name: LIZZIE HOLLOWAY Facility: [facility]:[place] : 1940 Planned Disposition: Nursing Facility [facility] Cert Anticipated Discharge Date: 12/21/18 Discharge Date: Expected LOS: 8 Initial Reviewer: [id number] Initial Review Date: 12/19/2018 Generated: 12/23/18 11:10 am Comments DCP- Discharge Planning Updated by [id number]: Bolivar Pink on 12/23/18 9:[address] Patient Name: LIZZIE HOLLOWAY Encounter No: [id number] : 1940 Primary Insurance: MEDICARE A & B Anticipated DC Date: 12-21-2018 Planned Disposition: Nursing Facility [facility] Cert External Planned Provider: [facility], MEDICARE REHAB BED DCP follow-up note: CM FAXED ICU UPDATE TO [facility] VIA [employer] AT [phone]. [facility] PLANS TO ACCEPT PT BACK TO SKILLED REHAB BED AT DISCHARGE. CM TO CONTINUE TO FOLLOW AND ASSIST NEEDED. Bolivar Pink, CASE MANAGEMENT DCP- Discharge Planning Updated by [id number]: Bolivar Pink on 12/21/18 2:[address] Patient Name: LIZZIE HOLLOWAY Encounter No: [id number] : 1940 Primary Insurance: MEDICARE A & B Anticipated DC Date: 12-21-2018 Planned Disposition: Nursing Facility [facility] Cert External Planned Provider:[facility], MEDICARE REHAB BED DCP follow-up note: CM RECEIVED DISCHARGE ORDER, FAXED DISCHARGE TO [facility] VIA [employer] AT [phone]. SHAY CONTACTED CM AND INFORMED THAT PT WILL RETURN TO SKILLED BED, VAN TO STAIN DIPPER AT 4:30PM TODAY. CM CALLED PT'S SISTER, ALAN ALDEN, , INFORMED OF DISCHARGE AND ALAN INFORMED CM THAT SHE IS OK WITH DISCHARGE BACK TO [facility] IF PT IS STABLE FOR DISCHARGE. ALAN WILL COME AND SEE PT PRIOR TO DISCHARGE TODAY AT HOSPITAL. NURSE REPORT TO BE CALLED TO [facility] AT [phone]. [facility] TO ARRANGE VAN TRANSPORTATION FOR 4:30PM TODAY. Bolivar Pink CASE MANAGEMENT DCP- Discharge Planning Updated by [id number]: Bolivar Pink on 12/21/18 8:[address] Patient Name: LIZZIE HOLLOWAY Encounter No: [id number] : 1940 Primary Insurance: MEDICARE A & B Anticipated DC Date: 12-21-2018 Planned Disposition: Nursing Facility [facility] Cert External Planned Provider: [facility], LONG TERM CARE MEDICAID BED DCP follow-up note: CM MET WITH PT IN ROOM WHO IS STILL WILLING FOR DISCHARGE BACK TO [facility] AT [facility]. CM PROVIDED AND DISCUSSED IMPORTANT MESSAGE FROM MEDICARE. CM FAXED UPDATE TO [facility] VIA [employer] AT [phone]. FOR DISCHARGE, FAX DISCHARGE INFORMATION TO [facility] AT [phone]. NURSE REPORT TO BE CALLED TO [facility] AT [phone]. [facility] TO ARRANGE VAN TRANSPORTATION. CHECO Rodriguez DCP- Discharge Planning Updated by [id number]: Bolivar Pink on 12/19/18 3:[address] Patient Name: LIZZIE HOLLOWAY Encounter No: [id number] : 1940 Primary Insurance: MEDICARE A & B Anticipated DC Date: Planned Disposition: Nursing Facility [facility] Cert External Planned Provider: [facility] TERM CARE MEDICAID BED DCP follow-up note: CM SPOKE TO PT'S SISTER VIA PHONE, ALAN ROSA, , WHO INFORMED CM THAT SHE TOOK CARE OF PT FOR 10 YEARS AT HOME. PT IS NOW A TOTAL CARE PT AND WILL HAVE TO RETURN TO [facility]. ALAN SEE'S PT AT LEAST THREE TIMES PER WEEK AT THE FACILITY AND IS SATISFIED WITH CARE RECEIVED THERE. CHOICE LETTER COMPLETED VIA PHONE. CM MET WITH PT LATER IN THE DAY, DISCUSSED DISCHARGE PLANNING. PT WAS HOPEFUL SHE COULD GO HOME BUT UNDERSTANDS THAT HER SISTER CANNOT CARE FOR HER. ALAN GRIMALDO CONTACTED VIA PHONE, CHOICE DISCUSSED, PROVIDER LISTING LEFT WITH PT. CHOICE COMPLETED VIA PHONE FOR [facility]. CM PROVIDED AND DISCUSSED IMPORTANT MESSAGE FROM MEDICARE. PT REPORTS INABILITY TO SIGN ANYTHING. ALAN ASKED TO BE NOTIFIED WHEN PT DISCHARGES BACK TO [facility]. CM NOTIFIED SHAY OF [facility], , WHO VERIFIED PT IS IN GE[facility]PATIAL INTELLIGENCE ANALYST CARE BED AT FACILITY. CM FAXED UPDATE TO [facility] VIA [employer] AT [phone]. FOR DISCHARGE, FAX DISCHARGE INFORMATION TO [facility] AT [phone]. NURSE REPORT TO BE CALLED TO [facility] AT [phone]. [facility] TO ARRANGE VAN TRANSPORTATION. Bolivar Pink, CASE MANAGEMENT DCP- Discharge Planning Updated by [id number]: Aileen Salinas on 12/18/18 5:[address] CM MET WITH THE PATIENT AT THE BEDSIDE. EXPLAINED CM HAD ORDER FROM MD TO DISCUSS DCP. PATIENT CONSENTS TO SPEAK WITH CM. SHE WAS ADMITT[facility] FROM [facility]. SHE WOULD LIKE TO DISCHARGE TO HER SISTER'S HOME AT DISCHARGE. SHE STATES SHE WILL NEED TO SPEAK WITH HER SISTER SHE HAS HER OWN MEDICAL ISSUES. HER SISTER IS ALAN LEE. PATIENT REPORTS SHE HAS A CELL PHONE [phone]. DISCHARGE PLAN IS PENDING. WILL NEED TO FOLLOW UP WITH SHIRLEY AND HER SISTER. DCPIA - Discharge Planning Initial Assessment Updated by [id number]: Bolivar Pink on 12/19/18 4:28 pm * Is the patient Alert and Oriented? Yes * How many steps to enter\exit or inside your home? NONE * PCP DR. ZUÑIGA * [facility] * Preadmission Environment [employer] Specialist Acute Care Facility * Facility Name [facility] * ADLs Partial Dependent * Partial ADLs (Assistance needed) Ambulation Bathing Medication Management Transfers * Equipment Other * Other Equipment ALL MEDICAL EQUIPMENT PROVIDED BY THE FACILITY * List name and contact numbers for known caregivers / representatives who currently or will assist patient after discharge: AALN LEE, SISTER, * Verbal permission to speak to the caregivers and representatives has been obtained from the patient. Yes * Community resources currently utilized None * Please name any agencies selected above. NONE * Additional services required to return to the preadmission environment? No * Can the patient safely return to the preadmission environment? Yes * Has this patient been hospitalized within the prior 30 days at any hospital? No Coverage Notice Reviewer: JEFFERSON Pink Notice Issued Date-Time: 12/19/2018 11:05 Notice Type: Patient Choice Letter Notice Delivered To: Family Member Relationship to Patient: Sister Event Planning Intern Name: ALAN LEE Delivery Method: PHONE - Phone Becca Days: Prior Verbal Notification: Recipient Understood Notice: Yes Recipient Signature: Med Rec Note Co-signed by Attending: Coverage Notice Comment: SHIRLEY ROSE RETURN TO LTC Reviewer: JEFFERSON Pink Notice Issued Date-Time: 12/19/2018 14:30 Notice Type: IM Discharge Notice Notice Delivered To: Family Member Relationship to Patient: Sister Event Planning Intern Name: ALAN LEE Delivery Method: PHONE - Phone Becca Days: Prior Verbal Notification: Recipient Understood Notice: Yes Recipient Signature: Med Rec Note Co-signed by Attending: Coverage Notice Comment: HAND DELIVERED COPY TO PT IN ROOM. Reviewer: JEFFERSON Pink Notice Issued Date-Time: 12/21/2018 9:00 Notice Type: IM Discharge Notice Notice Delivered To: Patient Relationship to Patient: Event Planning Intern Name: Delivery Method: HAND - Hand Delivered Becca Days: Prior Verbal Notification: Recipient Understood Notice: Yes Recipient Signature: Yes Med Rec Note Co-signed by Attending: Coverage Notice Comment: Reviewer: JEFFERSON Pink Notice Issued Date-Time: 12/19/2018 14:30 Notice Type: IM Discharge Notice Notice Delivered To: Patient Relationship to Patient: Event Planning Intern Name: Delivery Method: HAND - Hand Delivered Becca Days: Prior Verbal Notification: Recipient Understood Notice: Yes Recipient Signature: Med Rec Note Co-signed by Attending: Coverage Notice Comment: PT REPORTS INABILITY TO SIGN ANYTHING Last DP export: 12/22/18 8:07 am Patient Name: LIZZIE HOLLOWAY Page [id number] at 1010 All edits/amendments must be made on the electronic document DICTATION DATE: 12/23/18 1010 CALIBRATION CHECKER: ARNEL 12/23/18 1010 RPT#: [id number] DC DATE: STATUS: ADM IN [facility] [address] [place] [address] END OF REPORT
--- NOTE | 2018-12-23 11:00 | NUR ---
LOST ALL IV ACCESS, VASCULAR ACCESS NURSE CALLED FOR LINE, UNABLE TO SUCCEED, SPOKE WITH FAMILY ABOUT AGGRESSIVLY TREATING THE PT WITH PRESSORS, WOULD NEED TO PLACE A CENTRAL LINE IN THE NECK, FAMILY STATED THEY WISH TO MAKE HER COMFORTABLE AND FOLLOW ALONG WITH COMFORT CARE MEASURES. WILL CONTINUE TO OBSERVE.
[2018-12-23 11:41] LABS: INR 1.86 (0.85-1.17); PROTIME 20.8 SECONDS (11.6-15.0)
--- NOTE | 2018-12-23 13:00 | NUR ---
FAMILY AT BEDSIDE, PT VITALS REMAINS THE SAME, WILL CONTINUE TO OBSERVE.
--- NOTE | 2018-12-23 15:00 | NUR ---
NO CHANGES, FAMILY AT BEDSIDE, SEE FLOW SHEET FOR FURTHER DETAILS. WILL CONTINUE TO OBSERVE.
--- NOTE | 2018-12-23 17:00 | NUR ---
PT VITALS REMAINS THE SAME, FAMILY AT BEDSIDE, ORAL CARE PROVIDED, PT TURNED AND REPOSITIONED FOR COMFORT, MONITORS ON AND WORKING, WILL CONTINUE TO OBSERVE.
--- NOTE | 2018-12-23 20:10 | NUR ---
PT ARRIVED TO FLOOR FROM ICU VIA BED WITH FAMILY AT BEDSIDE. PT VITALS BP-88/41 P-91 T-98.3 O2-94 2LNC RR-12. BAUER CATHETER IN PLACE. NO S/S OF DISTRESS. ORAL CARE PROVIDED. BED LOW CALL LIGHT WITHIN REACH WILL CONTINUE TO MONITOR.
--- NOTE | 2018-12-23 23:25 | NUR ---
PT RESTING WITH EYES CLOSED RR-12. NO S/S/ OF DISTRESS. FAMILY AT BEDSIDE. BED LOW SIDE RAILS X2, CALL LIGHT WITHIN REACH. WILL CONTINUE TO MONITOR.
[2018-12-24] VITALS: BP 86/54
--- NOTE | 2018-12-24 02:53 | NUR ---
PT LAYING IN BED. RR SHALLOW AND UNLABORED. PT SISTER AT BEDSIDE. WILL CONTINUE PALLATIVE CARE.
--- NOTE | 2018-12-24 03:12 | NUR ---
I have reviewed this patient and I concur with the Shift Assessment completed by the Licensed Practical Nurse today this shift.
[2018-12-24 04:00] VITALS: BP 94/42
--- NOTE | 2018-12-24 07:15 | NUR ---
RPEORT RECIEVED AND MORNING ROUNDING COMPLETE. PT LAYING IN BED EYES CLOSED. BREATHING IS SHALLOW BUT EVEN. PT'S FAMILY AT BEDSIDE CONFIRMS PALITIVE CARE ONLY. PT HAS ON NASAL CANNULA RECIEVING 3L OF O2. NO OTHER NEEDS AT THIS TIME. CALL LIGTH WITHIN REACH AND BED IN LOWEST POSITION.
[2018-12-24 08:59] VITALS: BP 93/32
[2018-12-24 11:30] VITALS: BP 95/34
[2018-12-24 15:30] VITALS: BP 118/39
--- NOTE | 2018-12-24 16:21 | NUR ---
AGREE WITH PLASTIC BUBBLE PACKER ASSESSMENT
--- NOTE | 2018-12-24 19:59 | NUR ---
RECIEVED UP IN BED WITH EYES CLOSED. REMAINS UNRESPONSIVE. O2@ 3 LITERS PER N/C IN PLACE. IV TO RIGHT AND LEFT HAND. BRUISING TO BILATERAL ARMS AND HANDS. ALSO, LARGE BRUISE TO UPPER AND LOWER QUADRANT OF ABD. DARK PURPLE IN COLOR. F/C INTACT WITH CLEAR YELLOW URINE DRAINING TO BEDSIDE DRAINAGE BAG. RESP EVEN AND UNLABORED. ABD SOFT. BSX4 QUADRANTS. NO S/S OF DISTRESS OBSERVED.
[2018-12-24 20:00] VITALS: BP 145/53
[2018-12-25] VITALS: BP 134/52
[2018-12-25 04:00] VITALS: BP 146/55
--- NOTE | 2018-12-25 05:04 | NUR ---
O2 SATS IN LOW 70'S. CALLED RT AND INCREASED O2. PT AWAKE AND ASKED FOR WATER. THICKEN WATER GIVEN. RT STATES O2 STILL NOT UP AND WILL PLACE A NON REBREATHER ON PT.
[2018-12-25 07:30] VITALS: BP 136/52
--- NOTE | 2018-12-25 07:30 | NUR ---
SLEEPING IN BED. AROUSES TO STIMULI. RESPIRATIONS SHALLOW AND LABORED. NONREBREATHER MASK ON. DENIES ANY NEEDS. BAUER DRAINING AT BEDSIDE. DENIES ANY NEEDS. CONTINUE PLAN OF CARE AND SAFETY PRECAUTIONS.
[2018-12-25 11:30] VITALS: BP 165/57
[2018-12-25 15:30] VITALS: BP 123/44
--- NOTE | 2018-12-25 19:41 | NUR ---
RECIEVED UP IN BED WITH EYES OPEN. ALERT AND ORIENTED TO PERSON ONLY. REQUESTED WATER. THICKEN WATER GIVEN. NO S/S OF ASPIRATION OBSERVED. IV TO LEFT HAND WITH NS @ 30CC/HR. NO REDNESS OR SWELLING TO SITE WITH DSG INTACT. IV SITE TO RIGHT HAND SL.. REMAINS ON PALLATIVE CARE AND IS DNR.
[2018-12-25 21:53] VITALS: BP 109/34
--- NOTE | 2018-12-25 22:05 | NUR ---
AWAKE ALERT AND ORIENTED X1. CALLING OUT FOR WATER. THICKEN WATER GIVEN. STATED ' I'M HUNGRY". PUDDING GIVEN AND CONSUMED 100%. C/O BACK ACHE WILL CALL COPY CHASER FOR ORDER.
[2018-12-26 04:53] VITALS: BP 129/48
[2018-12-26 06:03] LABS: BASOPHILS 0.1 % (0-2); EOSINOPHILS 0.1 % (0-7); HEMATOCRIT 25.1 % (36.0-48.0); HEMOGLOBIN 7.9 g/dL (12-16); IMMATURE GRANULOCYTES 0.6 % (0-5); LYMPHOCYTES 4.5 % (15-50); MCH 29.3 pg (26.0-34.0); MCHC 31.5 g/dL (31.0-37.0); MEAN PLATELET VOLUME 10.8 fL (7.4-10.4); MONOCYTES 6.4 % (2-11); NEUTROPHILS 88.3 % (40-80); PLATELET COUNT 216 10x3/uL (130-400); RDW 16.2 % (11.5-14.5); WBC 17.2 10x3/uL (4.8-10.8)
[2018-12-26 06:56] LABS: ALBUMIN 1.8 g/dL (3.4-5.0); ANION GAP 18.3 mmol/L (8-16); CARBON DIOXIDE 27.5 mmol/L (21.0-32.0); CREATININE - SERUM 2.3 mg/dL (0.6-1.3); POTASSIUM - SERUM 3.8 mmol/L (3.5-5.1); PROTEIN - SERUM 5.4 g/dL (6.4-8.2); VANCOMYCIN - RANDOM 6.7 ug/mL (10.0-20.0)
[2018-12-26 07:05] LABS: CALCIUM 6.7 mg/dL (8.5-10.1)
[2018-12-26 08:50] VITALS: BP 120/66
[2018-12-26 11:53] VITALS: BP 126/56
--- NOTE | 2018-12-26 13:27 | MORECARE ---
CASE MANAGEMENT DISCHARGE SUMMARY PATIENT: LIZZIE HOLLOWAY UNIT: [id number] ADM DATE: 12/13/18 AGE: 78 : 41 SEX: F ROOM/BED: D.0387 AUTHOR: MATT,DOC PHYSICIAN: REFERRING PHYSICIAN: VICKEY ORTIZ MD DATE OF SERVICE: 12/26/18 Discharge Plan Patient Name: LIZZIE HOLLOWAY Facility: [facility]:[place] : 1940 Planned Disposition: Nursing Facility [facility] Cert Anticipated Discharge Date: 12/21/18 Discharge Date: Expected LOS: 8 Initial Reviewer: [id number] Initial Review Date: 12/19/2018 Generated: 12/26/18 2:27 pm Comments DCP- Discharge Planning Updated by [id number]: Bolivar Pink on 12/23/18 8:[address] Patient Name: LIZZIE HOLLOWAY Encounter No: [id number] : 1940 Primary Insurance: MEDICARE A & B Anticipated DC Date: 12-21-2018 Planned Disposition: Nursing Facility [facility] Cert External Planned Provider: [facility], MEDICARE REHAB BED DCP follow-up note: CM FAXED ICU UPDATE TO [facility] VIA [employer] AT [phone]. [facility] PLANS TO ACCEPT PT BACK TO SKILLED REHAB BED AT DISCHARGE. CM TO CONTINUE TO FOLLOW AND ASSIST NEEDED. Bolivar Pink, CASE MANAGEMENT DCP- Discharge Planning Updated by [id number]: Bolivar Pink on 12/21/18 1:[address] Patient Name: LIZZIE HOLLOWAY Encounter No: [id number] : 1940 Primary Insurance: MEDICARE A & B Anticipated DC Date: 12-21-2018 Planned Disposition: Nursing Facility [facility] Cert External Planned Provider[facility] DCP follow-up note: CM RECEIVED DISCHARGE ORDER, FAXED DISCHARGE TO [facility] VIA [employer] AT [phone]. 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 CM CALLED PT'S SISTER, ALAN ALDEN, , INFORMED OF DISCHARGE AND ALAN INFORMED CM THAT SHE IS OK WITH DISCHARGE BACK TO [facility] IF PT IS STABLE FOR DISCHARGE. ALAN WILL COME AND SEE PT PRIOR TO DISCHARGE TODAY AT HOSPITAL. NURSE REPORT TO BE CALLED TO [facility] AT [phone]. [facility] TO ARRANGE VAN TRANSPORTATION FOR 4:30PM TODAY. Bolivar Pink CASE MANAGEMENT DCP- Discharge Planning Updated by [id number]: Bolivar Pink on 12/21/18 7:[address] Patient Name: LIZZIE HOLLOWAY Encounter No: [id number] : 1940 Primary Insurance: MEDICARE A & B Anticipated DC Date: 12-21-2018 Planned Disposition: Nursing Facility [facility] Cert External Planned Provider: [facility], LONG TERM CARE MEDICAID BED DCP follow-up note: CM MET WITH PT IN ROOM WHO IS STILL WILLING FOR DISCHARGE BACK TO [facility] AT [facility]. CM PROVIDED AND DISCUSSED IMPORTANT MESSAGE FROM MEDICARE. CM FAXED UPDATE TO [facility] VIA [employer] AT [phone]. FOR DISCHARGE, FAX DISCHARGE INFORMATION TO [facility] AT [phone]. NURSE REPORT TO BE CALLED TO [facility] AT [phone]. [facility] TO ARRANGE VAN TRANSPORTATION. CHECO Rodriguez DCP- Discharge Planning Updated by [id number]: Bolivar Pink on 12/19/18 2:[address] Patient Name: LIZZIE HOLLOWAY Encounter No: [id number] : 1940 Primary Insurance: MEDICARE A & B Anticipated DC Date: Planned Disposition: Nursing Facility [facility] Cert External Planned Provider: [facility] TERM CARE MEDICAID BED DCP follow-up note: CM SPOKE TO PT'S SISTER VIA PHONE, ALAN ORSA, , WHO INFORMED CM THAT SHE TOOK CARE OF PT FOR 10 YEARS AT HOME. PT IS NOW A TOTAL CARE PT AND WILL HAVE TO RETURN TO [facility]. ALAN SEE'S PT AT LEAST THREE TIMES PER WEEK AT THE FACILITY AND IS SATISFIED WITH CARE RECEIVED THERE. CHOICE LETTER COMPLETED VIA PHONE. CM MET WITH PT LATER IN THE DAY, DISCUSSED DISCHARGE PLANNING. PT WAS HOPEFUL SHE COULD GO HOME BUT UNDERSTANDS THAT HER SISTER CANNOT CARE FOR HER. ALAN GRIMALDO CONTACTED VIA PHONE, CHOICE DISCUSSED, PROVIDER LISTING LEFT WITH PT. CHOICE COMPLETED VIA PHONE FOR [facility]. CM PROVIDED AND DISCUSSED IMPORTANT MESSAGE FROM MEDICARE. PT REPORTS INABILITY TO SIGN ANYTHING. ALAN ASKED TO BE NOTIFIED WHEN PT DISCHARGES BACK TO CARE HOME. CM NOTIFIED SHAY OF [facility], , WHO VERIFIED PT IS IN [facility] BED AT FACILITY. CM FAXED UPDATE TO [facility] VIA [employer] AT [phone]. FOR DISCHARGE, FAX DISCHARGE INFORMATION TO [facility] AT [phone]. NURSE REPORT TO BE CALLED TO [facility] AT [phone]. [facility] TO ARRANGE VAN TRANSPORTATION. Bolivar Pink, CASE MANAGEMENT DCP- Discharge Planning Updated by [id number]: Aileen Salinas on 12/18/18 4:[address] CM MET WITH THE PATIENT AT THE BEDSIDE. EXPLAINED CM HAD ORDER FROM MD TO DISCUSS DCP. PATIENT CONSENTS TO SPEAK WITH CM. SHE WAS ADMITTED FROM [facility]. SHE WOULD LIKE TO DISCHARGE TO HER SISTER'S HOME AT DISCHARGE. SHE STATES SHE WILL NEED TO SPEAK WITH HER SISTER SHE HAS HER OWN MEDICAL ISSUES. HER SISTER IS ALAN LEE. PATIENT REPORTS SHE HAS A CELL PHONE [phone]. DISCHARGE PLAN IS PENDING. WILL NEED TO FOLLOW UP WITH SHIRLEY AND HER SISTER. DCPIA - Discharge Planning Initial Assessment Updated by [id number]: Bolivar Pink on 12/19/18 4:28 pm * Is the patient Alert and Oriented? Yes * How many steps to enter\exit or inside your home? NONE * PCP DR. ZUÑIGA * Pharmacy [facility] * Preadmission Environment [facility] * Facility Name [facility] * ADLs Partial Dependent * Partial ADLs (Assistance needed) Ambulation Bathing Medication Management Transfers * Equipment Other * Other Equipment ALL MEDICAL EQUIPMENT PROVIDED BY THE FACILITY * List name and contact numbers for known caregivers / representatives who currently or will assist patient after discharge: ALAN LEE, SISTER, * Verbal permission to speak to the caregivers and representatives has been obtained from the patient. Yes * Community resources currently utilized None * Please name any agencies selected above. NONE * Additional services required to return to the preadmission environment? No * Can the patient safely return to the preadmission environment? Yes * Has this patient been hospitalized within the prior 30 days at any hospital? No External Providers External Provider: [facility] Prabhu xiong(provides inp Next Contact Date: 12/26/2018 Service Request Date: Service Type: Resolution: Reviewer: Comments: Coverage Notice Reviewer: JEFFERSON Pink Notice Issued Date-Time: 12/19/2018 11:05 Notice Type: Patient Choice Letter Notice Delivered To: Family Member Relationship to Patient: Sister Improvement Nurse Name: ALAN LEE Delivery Method: PHONE - Phone Becca Days: Prior Verbal Notification: Recipient Understood Notice: Yes Recipient Signature: Med Rec Note Co-signed by Attending: Coverage Notice Comment: SHIRLEY XIONG RETURN TO LTC Reviewer: JEFFERSON Pink Notice Issued Date-Time: 12/19/2018 14:30 Notice Type: IM Discharge Notice Notice Delivered To: Family Member Relationship to Patient: Sister Improvement Nurse Name: ALAN LEE Delivery Method: PHONE - Phone Becca Days: Prior Verbal Notification: Recipient Understood Notice: Yes Recipient Signature: Med Rec Note Co-signed by Attending: Coverage Notice Comment: HAND DELIVERED COPY TO PT IN ROOM. Reviewer: JEFFERSON Pink Notice Issued Date-Time: 12/19/2018 14:30 Notice Type: IM Discharge Notice Notice Delivered To: Patient Relationship to Patient: Improvement Nurse Name: Delivery Method: HAND - Hand Delivered Becca Days: Prior Verbal Notification: Recipient Understood Notice: Yes Recipient Signature: Med Rec Note Co-signed by Attending: Coverage Notice Comment: PT REPORTS INABILITY TO SIGN ANYTHING Reviewer: JEFFERSON Pink Notice Issued Date-Time: 12/21/2018 9:00 Notice Type: IM Discharge Notice Notice Delivered To: Patient Relationship to Patient: Improvement Nurse Name: Delivery Method: HAND - Hand Delivered Becca Days: Prior Verbal Notification: Recipient Understood Notice: Yes Recipient Signature: Yes Med Rec Note Co-signed by Attending: Coverage Notice Comment: Last DP export: 12/23/18 8:10 am Patient Name: LIZZIE HOLLOWAY Page 76725 at 1327 All edits/amendments must be made on the electronic document DICTATION DATE: 12/26/18 132 SITE MEDICAL DIRECTOR: ARNEL 12/26/18 1326 RPT#: [id number] DC DATE: STATUS: ADM IN [facility] [address] [place] [address] END OF REPORT
--- NOTE | 2018-12-26 13:35 | MORECARE ---
CASE MANAGEMENT DISCHARGE SUMMARY PATIENT: LIZZIE HOLLOWAY UNIT: [id number] ADM DATE: 12/13/18 AGE: 78 : 41 SEX: F ROOM/BED: D.7845 AUTHOR: MATT,DOC PHYSICIAN: REFERRING PHYSICIAN: VICKEY ORTIZ MD DATE OF SERVICE: 12/26/18 Discharge Plan Patient Name: LIZZIE HOLLOWAY Facility: [facility]:[place] : 1940 Planned Disposition: Nursing Facility [facility] Cert Anticipated Discharge Date: 12/26/18 Discharge Date: Expected LOS: 13 Initial Reviewer: [id number] Initial Review Date: 12/19/2018 Generated: 12/26/18 2:35 pm Comments DCP- Discharge Planning Updated by [id number]: Bolivar Pink on 12/23/18 8:[address] Patient Name: LIZZIE HOLLOWAY Encounter No: [id number] : 1940 Primary Insurance: MEDICARE A & B Anticipated DC Date: 12-21-2018 Planned Disposition: Nursing Facility [facility] Cert External Planned Provider: [facility], MEDICARE REHAB BED DCP follow-up note: CM FAXED ICU UPDATE TO [facility] VIA [employer] AT [phone]. [facility] PLANS TO ACCEPT PT BACK TO SKILLED REHAB BED AT DISCHARGE. CM TO CONTINUE TO FOLLOW AND ASSIST NEEDED. Bolivar Pink CASE MANAGEMENT DCP- Discharge Planning Updated by [id number]: Bolivar Pink on 12/21/18 1:[address] Patient Name: LIZZIE HOLLOWAY Encounter No: [id number] : 1940 Primary Insurance: MEDICARE A & B Anticipated DC Date: 12-21-2018 Planned Disposition: Nursing Facility [facility] Cert External Planned Provider[facility] DCP follow-up note: CM RECEIVED DISCHARGE ORDER, FAXED DISCHARGE TO [facility] VIA [employer] AT [phone]. 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 CM CALLED PT'S SISTER, LAAN ALDEN, , INFORMED OF DISCHARGE AND ALAN INFORMED CM THAT SHE IS OK WITH DISCHARGE BACK TO [facility] IF PT IS STABLE FOR DISCHARGE. ALAN WILL COME AND SEE PT PRIOR TO DISCHARGE TODAY AT HOSPITAL. NURSE REPORT TO BE CALLED TO [facility] AT [phone]. [facility] TO ARRANGE VAN TRANSPORTATION FOR 4:30PM TODAY. Bolivar Pink CASE MANAGEMENT DCP- Discharge Planning Updated by [id number]: Bolivar Pink on 12/21/18 7:[address] Patient Name: LIZZIE HOLLOWAY Encounter No: [id number] : 1940 Primary Insurance: MEDICARE A & B Anticipated DC Date: 12-21-2018 Planned Disposition: Nursing Facility [facility] Cert External Planned Provider: [facility], LONG TERM CARE MEDICAID BED DCP follow-up note: CM MET WITH PT IN ROOM WHO IS STILL WILLING FOR DISCHARGE BACK TO HEAD [facility]ER CARE AT [facility]. CM PROVIDED AND DISCUSSED IMPORTANT MESSAGE FROM MEDICARE. CM FAXED UPDATE TO [facility] VIA [employer] AT [phone]. FOR DISCHARGE, FAX DISCHARGE INFORMATION TO [facility] AT [phone]. NURSE REPORT TO BE CALLED TO [facility] AT [phone]. [facility] TO ARRANGE VAN TRANSPORTATION. CHECO Rodriguez DCP- Discharge Planning Updated by [id number]: Bolivar Pink on 12/19/18 2:[address] Patient Name: LIZZIE HOLLOWAY Encounter No: [id number] : 1940 Primary Insurance: MEDICARE A & B Anticipated DC Date: Planned Disposition: Nursing Facility [facility] Cert External Planned Provider: [facility] TERM CARE MEDICAID BED DCP follow-up note: CM SPOKE TO PT'S SISTER VIA PHONE, ALAN ROSA, , WHO INFORMED CM THAT SHE TOOK CARE OF PT FOR 10 YEARS AT HOME. PT IS NOW A TOTAL CARE PT AND WILL HAVE TO RETURN TO [facility]. ALAN SEE'S PT AT LEAST THREE TIMES PER WEEK AT THE FACILITY AND IS SATISFIED WITH CARE RECEIVED THERE. CHOICE LETTER COMPLETED VIA PHONE. CM MET WITH PT LATER IN THE DAY, DISCUSSED DISCHARGE PLANNING. PT WAS HOPEFUL SHE COULD GO HOME BUT UNDERSTANDS THAT HER SISTER CANNOT CARE FOR HER. ALAN GRIMALDO CONTACTED VIA PHONE, CHOICE DISCUSSED, PROVIDER LISTING LEFT WITH PT. CHOICE COMPLETED VIA PHONE FOR [facility]. CM PROVIDED AND DISCUSSED IMPORTANT MESSAGE FROM MEDICARE. PT REPORTS INABILITY TO SIGN ANYTHING. ALAN ASKED TO BE NOTIFIED WHEN PT DISCHARGES BACK TO [facility]. CM NOTIFIED SHAY OF [facility], , WHO VERIFIED PT IS IN HEAD [facility]ER [facility]ARE BED AT FACILITY. CM FAXED UPDATE TO [facility] VIA [employer] AT [phone]. FOR DISCHARGE, FAX DISCHARGE INFORMATION TO [facility] AT [phone]. NURSE REPORT TO BE CALLED TO [facility] AT [phone]. [facility] TO ARRANGE VAN TRANSPORTATION. Bolivar Pink, CASE MANAGEMENT DCP- Discharge Planning Updated by [id number]: Aileen Salinas on 12/18/18 4:[address] CM MET WITH THE PATIENT AT THE BEDSIDE. EXPLAINED CM HAD ORDER FROM MD TO DISCUSS DCP. PATIENT CONSENTS TO SPEAK WITH CM. SHE [facility] FROM [facility]. SHE WOULD LIKE TO DISCHARGE TO HER SISTER'S HOME AT DISCHARGE. SHE STATES SHE WILL NEED TO SPEAK WITH HER SISTER SHE HAS HER OWN MEDICAL ISSUES. HER SISTER IS ALAN LEE. PATIENT REPORTS SHE HAS A CELL PHONE [phone]. DISCHARGE PLAN IS PENDING. WILL NEED TO FOLLOW UP WITH SHIRLEY AND HER SISTER. DCPIA - Discharge Planning Initial Assessment Updated by [id number]: Bolivar Pink on 12/19/18 4:28 pm * Is the patient Alert and Oriented? Yes * How many steps to enter\exit or inside your home? NONE * PCP DR. ZUÑIGA * [facility] * [facility] * Facility Name [facility] * ADLs Partial Dependent * Partial ADLs (Assistance needed) Ambulation Bathing Medication Management Transfers * Equipment Other * Other Equipment ALL MEDICAL EQUIPMENT PROVIDED BY THE FACILITY * List name and contact numbers for known caregivers / representatives who currently or will assist patient after discharge: ALAN LEE, SISTER, * Verbal permission to speak to the caregivers and representatives has been obtained from the patient. Yes * Community resources currently utilized None * Please name any agencies selected above. NONE * Additional services required to return to the preadmission environment? No * Can the patient safely return to the preadmission environment? Yes * Has this patient been hospitalized within the prior 30 days at any hospital? No Coverage Notice Reviewer: JEFFERSON Pink Notice Issued Date-Time: 12/19/2018 11:05 Notice Type: Patient Choice Letter Notice Delivered To: Family Member Relationship to Patient: Sister Accounting Intern Name: ALAN LEE Delivery Method: PHONE - Phone Becca Days: Prior Verbal Notification: Recipient Understood Notice: Yes Recipient Signature: Med Rec Note Co-signed by Attending: Coverage Notice Comment: [facility] ROSE RETURN TO LTC Reviewer: JEFFERSON Pink Notice Issued Date-Time: 12/19/2018 14:30 Notice Type: IM Discharge Notice Notice Delivered To: Family Member Relationship to Patient: Sister Accounting Intern Name: ALAN LEE Delivery Method: PHONE - Phone Becca Days: Prior Verbal Notification: Recipient Understood Notice: Yes Recipient Signature: Med Rec Note Co-signed by Attending: Coverage Notice Comment: HAND DELIVERED COPY TO PT IN ROOM. Reviewer: JEFFERSON Pink Notice Issued Date-Time: 12/21/2018 9:00 Notice Type: IM Discharge Notice Notice Delivered To: Patient Relationship to Patient: Accounting Intern Name: Delivery Method: HAND - Hand Delivered Becca Days: Prior Verbal Notification: Recipient Understood Notice: Yes Recipient Signature: Yes Med Rec Note Co-signed by Attending: Coverage Notice Comment: Reviewer: JEFFERSON Pink Notice Issued Date-Time: 12/19/2018 14:30 Notice Type: IM Discharge Notice Notice Delivered To: Patient Relationship to Patient: Accounting Intern Name: Delivery Method: HAND - Hand Delivered Becca Days: Prior Verbal Notification: Recipient Understood Notice: Yes Recipient Signature: Med Rec Note Co-signed by Attending: Coverage Notice Comment: PT REPORTS INABILITY TO SIGN ANYTHING Last DP export: 12/26/18 12:27 p Patient Name: LIZZIE HOLLOWAY Page [id number] at 1335 All edits/amendments must be made on the electronic document DICTATION DATE: 12/26/18 1335 BUSINESS DEVELOPMENT CONSULTANT: ARNEL 12/26/18 1335 RPT#: [id number] DC DATE: STATUS: ADM IN [facility] [address] [place] [address] END OF REPORT
--- NOTE | 2018-12-26 13:43 | MORECARE ---
CASE MANAGEMENT DISCHARGE SUMMARY PATIENT: LIZZIE HOLLOWAY UNIT: [id number] ADM DATE: 12/13/18 AGE: 78 : 41 SEX: F ROOM/BED: D.8774 AUTHOR: MATT,DOC PHYSICIAN: REFERRING PHYSICIAN: VICKEY ORTIZ MD DATE OF SERVICE: 12/26/18 Discharge Plan Patient Name: LIZZIE HOLLOWAY Facility: [facility]:[place] : 1940 Planned Disposition: Nursing Facility [facility] Cert Anticipated Discharge Date: 12/26/18 Discharge Date: Expected LOS: 13 Initial Reviewer: [id number] Initial Review Date: 12/19/2018 Generated: 12/26/18 2:42 pm Comments DCP- Discharge Planning Updated by [id number]: Bolivar Pink on 12/26/18 12:[address] Patient Name: LIZZIE HOLLOWAY Encounter No: [id number] : 1940 Primary Insurance: MEDICARE A & B Anticipated DC Date: 12-26-2018 Planned Disposition: Nursing Facility [facility] Cert External Planned Provider: [facility], LONG TERM CARE MEDICAID BED DCP follow-up note: CM RECEIVED HOSPICE ORDER, REVIEWED CHART; PT IS ON COMFORT CARE NOW. CM MET WITH PT AND SISTER, ALAN LEE, IN ROOM TO DISCUSS DISCHARGE PLANNING AND NEEDS. PT DID NOT SPEAK TO CM AT ALL. PT'S EYES WERE OPEN. CM DISCUSSED HOSPICE ORDER, PROVIDERS, LOCATIONS AND SERVICES. HOSPICE COMPANY LISTING AND BROCHURES PROVIDED. ALAN WOULD LIKE TO CONSULT WITH [facility] TO KEEP PT HERE AT [place] WITH HOSPICE IF POSSIBLE. THEY WOULD RETURN PT TO [facility] WITH [facility] IF PT DOES NOT MEET CRITERIA FOR INPATIENT HOSPICE. CM CALLED [facility], , PROVIDED REFERRAL INFORMATION TO AISHWARYA WHO WILL HAVE NURSE COME TO HOSPITAL SHORTLY TO EVALUATE PT FOR HOSPICE SERVICES. CM FAXED HOSPICE REFERRAL AND ORDER TO [facility] AT [phone]. CM WAITING EVALUATION AND ADMISSION DETERMINATION FROM [facility]. CHECO Rodriguez DCP- Discharge Planning Updated by [id number]: Bolivar Pink on 12/23/18 8:[address] Patient Name: LIZZIE HOLLOWAY Encounter No: [id number] : 1940 Primary Insurance: MEDICARE A & B Anticipated DC Date: 12-21-2018 Planned Disposition: Nursing Facility [facility] Cert External Planned Provider: [facility], MEDICARE REHAB BED DCP follow-up note: CM FAXED ICU UPDATE TO [facility] VIA [employer] AT [phone]. [facility] PLANS TO ACCEPT PT BACK TO SKILLED REHAB BED AT DISCHARGE. CM TO CONTINUE TO FOLLOW AND ASSIST NEEDED. Bolivar Pink CASE MANAGEMENT DCP- Discharge Planning Updated by [id number]: Bolivar Pink on 12/21/18 1:[address] Patient Name: LIZZIE HOLLOWAY Encounter No: [id number] : 1940 Primary Insurance: MEDICARE A & B Anticipated DC Date: 12-21-2018 Planned Disposition: Nursing Facility [facility] Cert External Planned Provider:[facility], MEDICARE REHAB BED DCP follow-up note: CM RECEIVED DISCHARGE ORDER, FAXED DISCHARGE TO [facility] [employer]IA [employer] AT [phone]. SHAY CONTACTED CM AND INFORMED THAT PT WILL RETURN TO SKILLED BED, VAN TO OCCUPATIONAL HEALTH AND SAFETY MANAGER AT 4:30PM TODAY. ERICKA CALLED PT'S SISTER, ALAN RUANO, , INFORMED OF DISCHARGE AND ALAN INFORMED CM THAT SHE IS OK WITH DISCHARGE BACK TO [facility] IF PT IS STABLE FOR DISCHARGE. ALAN WILL COME AND SEE PT PRIOR TO DISCHARGE TODAY AT HOSPITAL. NURSE REPORT TO BE CALLED TO [facility] AT [phone]. [facility] TO ARRANGE VAN TRANSPORTATION FOR 4:30PM TODAY. CHECO Rodriguez MANAGEMENT DCP- Discharge Planning Updated by [id number]: Bolivar Pink on 12/21/18 7:[address] Patient Name: LIZZIE HOLLOWAY Encounter No: [id number] : 1940 Primary Insurance: MEDICARE A & B Anticipated DC Date: 12-21-2018 Planned Disposition: Nursing Facility [facility] Cert External Planned Provider[facility] MEDICAID BED DCP follow-up note: CM MET WITH PT IN ROOM WHO IS STILL WILLING FOR DISCHARGE BACK TO [facility] AT [facility]. CM PROVIDED AND DISCUSSED IMPORTANT MESSAGE FROM MEDICARE. CM FAXED UPDATE TO [facility] [employer]IA [employer] AT [phone]. FOR DISCHARGE, FAX DISCHARGE INFORMATION TO [facility] AT [phone]. NURSE REPORT TO BE CALLED TO [facility] AT [phone]. [facility] TO ARRANGE VAN TRANSPORTATION. Bolivar Pink, CASE MANAGEMENT DCP- Discharge Planning Updated by [id number]: Bolivar Pink on 12/19/18 2:[address] Patient Name: LIZZIE HOLLOWAY Encounter No: [id number] : 1940 Primary Insurance: MEDICARE A & B Anticipated DC Date: Planned Disposition: Nursing Facility [facility] Cert External Planned Provider: [facility], [facility] MEDICAID BED DCP follow-up note: CM SPOKE TO PT'S SISTER VIA PHONE, ALAN LEE, , WHO INFORMED CM THAT SHE TOOK CARE OF PT FOR 10 YEARS AT HOME. PT IS NOW A TOTAL CARE PT AND WILL HAVE TO RETURN TO [facility]. ALAN SEE'S PT AT LEAST THREE TIMES PER WEEK AT THE FACILITY AND IS SATISFIED WITH CARE RECEIVED THERE. CHOICE LETTER COMPLETED VIA PHONE. CM MET WITH PT LATER IN THE DAY, DISCUSSED DISCHARGE PLANNING. PT WAS HOPEFUL SHE COULD GO HOME BUT UNDERSTANDS THAT HER SISTER CANNOT CARE FOR HER. ALAN DILLAN CONTACTED VIA PHONE, CHOICE DISCUSSED, PROVIDER LISTING LEFT WITH PT. CHOICE COMPLETED VIA PHONE FOR [facility]. CM PROVIDED AND DISCUSSED IMPORTANT MESSAGE FROM MEDICARE. PT REPORTS INABILITY TO SIGN ANYTHING. ALAN ASKED TO BE NOTIFIED WHEN PT DISCHARGES BACK TO [facility]. CM NOTIFIED SHAY OF [facility], , WHO VERIFIED PT IS IN [facility] BED AT FACILITY. CM FAXED UPDATE TO [facility] [employer]IA [employer] AT [phone]. FOR DISCHARGE, FAX DISCHARGE INFORMATION TO [facility] AT [phone]. NURSE REPORT TO BE CALLED TO [facility] AT [phone]. [facility] TO ARRANGE VAN TRANSPORTATION. Bolivar Pink, CASE MANAGEMENT DCP- Discharge Planning Updated by [id number]: Aileen Salinas on 12/18/18 4:[address] CM MET WITH THE PATIENT AT THE BEDSIDE. EXPLAINED CM HAD ORDER FROM MD TO DISCUSS DCP. PATIENT CONSENTS TO SPEAK WITH CM. SHE WAS ADMITTED FROM [facility]. SHE WOULD LIKE TO DISCHARGE TO HER SISTER'S HOME AT DISCHARGE. SHE STATES SHE WILL NEED TO SPEAK WITH HER SISTER SHE HAS HER OWN MEDICAL ISSUES. HER SISTER IS ALAN LEE. PATIENT REPORTS SHE HAS A CELL PHONE [phone]. DISCHARGE PLAN IS PENDING. WILL NEED TO FOLLOW UP WITH SHIRLEY AND HER SISTER. DCPIA - Discharge Planning Initial Assessment Updated by JEFFERSON: Bolivar Pink on 12/19/18 4:28 pm * Is the patient Alert and Oriented? Yes * How many steps to enter\exit or inside your home? NONE * PCP DR. ZUÑIGA * Pharm[facility] * Preadmission Environment [facility] * Facility Name [facility] * ADLs Partial Dependent * Partial ADLs (Assistance needed) Ambulation Bathing Medication Management Transfers * Equipment Other * Other Equipment ALL MEDICAL EQUIPMENT PROVIDED BY THE FACILITY * List name and contact numbers for known caregivers / representatives who currently or will assist patient after discharge: ALAN LEE, SISTER, * Verbal permission to speak to the caregivers and representatives has been obtained from the patient. Yes * Community resources currently utilized None * Please name any agencies selected above. NONE * Additional services required to return to the preadmission environment? No * Can the patient safely return to the preadmission environment? Yes * Has this patient been hospitalized within the prior 30 days at any hospital? No Coverage Notice Reviewer: [id number] Pink Notice Issued Date-Time: 12/19/2018 11:05 Notice Type: Patient Choice Letter Notice Delivered To: Family Member Relationship to Patient: Sister Physician Relations Manager Name: ALAN LEE Delivery Method: PHONE - Phone Becca Days: Prior Verbal Notification: Recipient Understood Notice: Yes Recipient Signature: Med Rec Note Co-signed by Attending: Coverage Notice Comment: [facility] RETURN TO LTC Reviewer: [id number] Pink Notice Issued Date-Time: 12/19/2018 14:30 Notice Type: IM Discharge Notice Notice Delivered To: Family Member Relationship to Patient: Sister Physician Relations Manager Name: ALAN LEE Delivery Method: PHONE - Phone Becca Days: Prior Verbal Notification: Recipient Understood Notice: Yes Recipient Signature: Med Rec Note Co-signed by Attending: Coverage Notice Comment: HAND DELIVERED COPY TO PT IN ROOM. Reviewer: [id number] Rory Pink Notice Issued Date-Time: 12/19/2018 14:30 Notice Type: IM Discharge Notice Notice Delivered To: Patient Relationship to Patient: Physician Relations Manager Name: Delivery Method: HAND - Hand Delivered Becca Days: Prior Verbal Notification: Recipient Understood Notice: Yes Recipient Signature: Med Rec Note Co-signed by Attending: Coverage Notice Comment: PT REPORTS INABILITY TO SIGN ANYTHING Reviewer: [id number] Rory Pink Notice Issued Date-Time: 12/21/2018 9:00 Notice Type: IM Discharge Notice Notice Delivered To: Patient Relationship to Patient: Physician Relations Manager Name: Delivery Method: HAND - Hand Delivered Becca Days: Prior Verbal Notification: Recipient Understood Notice: Yes Recipient Signature: Yes Med Rec Note Co-signed by Attending: Coverage Notice Comment: Last DP export: 12/26/18 12:35 p Patient Name: LIZZIE HOLLOWAY Page [id number] at 1343 All edits/amendments must be made on the electronic document DICTATION DATE: 12/26/18 1342 RABBIT BREEDER: ARNEL 12/26/18 1342 RPT#: [id number] DC DATE: STATUS: ADM IN [facility] [address] [place] [address] END OF REPORT
[2018-12-26 15:42] VITALS: BP 125/45
--- NOTE | 2018-12-26 17:03 | MORECARE ---
CASE MANAGEMENT DISCHARGE SUMMARY PATIENT: LIZZIE HOLLOWAY UNIT: [id number] ADM DATE: 12/13/18 AGE: 78 : 41 SEX: F ROOM/BED: D.2806 AUTHOR: MATT,DOC PHYSICIAN: REFERRING PHYSICIAN: VICKEY ORTIZ MD DATE OF SERVICE: 12/26/18 Discharge Plan Patient Name: LIZZIE HOLLOWAY Facility: [facility]:[place] : 1940 Planned Disposition: Hospice Medical Facility Anticipated Discharge Date: 12/27/18 Discharge Date: Expected LOS: 14 Initial Reviewer: [id number] Initial Review Date: 12/19/2018 Generated: 12/26/18 6:02 pm Comments DCP- Discharge Planning Updated by [id number]: Bolivar Pink on 12/26/18 4:[address] Patient Name: LIZZIE HOLLOWAY Encounter No: [id number] : 1940 Primary Insurance: MEDICARE A & B Anticipated DC Date: 12-27-2018 Planned Disposition: Hospice Medical Facility External Planned Provider: [facility] DCP follow-up note: CM SPOKE TO CAMI OF [facility], THEY WILL ADMIT TO INPATIENT HOSPICE TOMORROW PT'S SISTER WAS TIRED, WENT HOME AND WILL NOT BE BACK UNTIL TOMORROW TO SIGN LEGALS. PT'S SISTER DID NOT WANT TO DO LEGALS FOR HOSPICE ADMISSION TONIGHT. CM WAITING PT'S FAMILY TO SIGN FOR INPATIENT HOSPICE ADMISSION WITH [facility]; FAMILY PLANS TO SIGN 12-27-18. CHECO Rodriguez DCP- Discharge Planning Updated by [id number]: Bolivar Pink on 12/26/18 12:[address] Patient Name: LIZZIE HOLLOWAY Encounter No: [id number] : 1940 Primary Insurance: MEDICARE A & B Anticipated DC Date: 12-26-2018 Planned Disposition: Nursing Facility [facility] External Planned Provider: [facility]P C[facility] MEDICAID BED DCP follow-up note: CM RECEIVED HOSPICE ORDER, REVIEWED CHART; PT IS ON COMFORT CARE NOW. CM MET WITH PT AND SISTER, ALAN LEE, IN ROOM TO DISCUSS DISCHARGE PLANNING AND NEEDS. PT DID NOT SPEAK TO CM AT ALL. PT'S EYES WERE OPEN. CM DISCUSSED HOSPICE ORDER, PROVIDERS, LOCATIONS AND SERVICES. HOSPICE COMPANY LISTING AND BROCHURES PROVIDED. ALAN WOULD LIKE TO CONSULT WITH [facility] TO KEEP PT HERE AT [place] WITH HOSPICE IF POSSIBLE. THEY WOULD RETURN PT TO [facility] WITH [facility] IF PT DOES NOT MEET CRITERIA FOR INPATIENT HOSPICE. CM CALLED [facility], , PROVIDED REFERRAL INFORMATION TO AISHWARYA WHO WILL HAVE NURSE COME TO HOSPITAL SHORTLY TO EVALUATE PT FOR HOSPICE SERVICES. CM FAXED HOSPICE REFERRAL AND ORDER TO [facility] AT [phone]. CM WAITING EVALUATION AND ADMISSION DETERMINATION FROM [facility]. Bolivar Pink, CASE MANAGEMENT DCP- Discharge Planning Updated by [id number]: Bolivar Pink on 12/23/18 8:[address] Patient Name: LIZZIE HOLLOWAY Encounter No: [id number] : 1940 Primary Insurance: MEDICARE A & B Anticipated DC Date: 12-21-2018 Planned Disposition: Nursing Facility [facility] Cert External Planned Provider: [facility], MEDICARE REHAB BED DCP follow-up note: CM FAXED ICU UPDATE TO [facility] VIA [employer] AT [phone]. [facility] PLANS TO ACCEPT PT BACK TO SKILLED REHAB BED AT DISCHARGE. CM TO CONTINUE TO FOLLOW AND ASSIST NEEDED. Bolivar Pink CASE MANAGEMENT DCP- Discharge Planning Updated by [id number]: Bolivar Pink on 12/21/18 1:[address] Patient Name: LIZZIE HOLLOWAY Encounter No: [id number] : 1940 Primary Insurance: MEDICARE A & B Anticipated DC Date: 12-21-2018 Planned Disposition: Nursing Facility [facility] Cert External Planned Provider:[facility], MEDICARE REHAB BED DCP follow-up note: CM RECEIVED DISCHARGE ORDER, FAXED DISCHARGE TO [facility]IA [employer] AT [phone]. SHAY CONTACTED CM AND INFORMED THAT PT WILL RETURN TO SKILLED BED, VAN TO REHABILITATION SERVICES MANAGER AT 4:30PM TODAY. ERICKA CALLED PT'S SISTER, ALAN RUANO, , INFORMED OF DISCHARGE AND ALAN INFORMED CM THAT SHE IS OK WITH DISCHARGE BACK TO [facility] IF PT IS STABLE FOR DISCHARGE. ALAN WILL COME AND SEE PT PRIOR TO DISCHARGE TODAY AT HOSPITAL. NURSE REPORT TO BE CALLED TO [facility] AT [phone]. [facility] TO ARRANGE VAN TRANSPORTATION FOR 4:30PM TODAY. Bolivar Pink CASE MANAGEMENT DCP- Discharge Planning Updated by [id number]: Bolivar Pink on 12/21/18 7:[address] Patient Name: LIZZIE HOLLOWAY Encounter No: [id number] : 1940 Primary Insurance: MEDICARE A & B Anticipated DC Date: 12-21-2018 Planned Disposition: Nursing Facility [facility] Cert External Planned Provider: [facility], USP CARE MEDICAID BED DCP follow-up note: CM MET WITH PT IN ROOM WHO IS STILL WILLING FOR DISCHARGE BACK TO [facility]P CARE AT [facility]. CM PROVIDED AND DISCUSSED IMPORTANT MESSAGE FROM MEDICARE. CM FAXED UPDATE TO [facility] VIA [employer] AT [phone]. FOR DISCHARGE, FAX DISCHARGE INFORMATION TO [facility] AT [phone]. NURSE REPORT TO BE CALLED TO [facility] AT [phone]. [facility] TO ARRANGE VAN TRANSPORTATION. Bolivar Pink CASE CHELSY DCP- Discharge Planning Updated by [id number]: Bolivar Pink on 12/19/18 2:[address] Patient Name: LIZZIE HOLLOWAY Encounter No: [id number] : 1940 Primary Insurance: MEDICARE A & B Anticipated DC Date: Planned Disposition: Nursing Facility [facility] Cert External Planned Provider: [facility], USP CARE MEDICAID BED DCP follow-up note: CM SPOKE TO PT'S SISTER VIA PHONE, ALAN ROSA, , WHO INFORMED CM THAT SHE TOOK CARE OF PT FOR 10 YEARS AT HOME. PT IS NOW A TOTAL CARE PT AND WILL HAVE TO RETURN TO [facility]. ALAN SEE'S PT AT LEAST THREE TIMES PER WEEK AT THE FACILITY AND IS SATISFIED WITH CARE RECEIVED THERE. CHOICE LETTER COMPLETED VIA PHONE. CM MET WITH PT LATER IN THE DAY, DISCUSSED DISCHARGE PLANNING. PT WAS HOPEFUL SHE COULD GO HOME BUT UNDERSTANDS THAT HER SISTER CANNOT CARE FOR HER. ALAN GRIMALDO CONTACTED VIA PHONE, CHOICE DISCUSSED, PROVIDER LISTING LEFT WITH PT. CHOICE COMPLETED VIA PHONE FOR [facility]. CM PROVIDED AND DISCUSSED IMPORTANT MESSAGE FROM MEDICARE. PT REPORTS INABILITY TO SIGN ANYTHING. ALAN ASKED TO BE NOTIFIED WHEN PT DISCHARGES BACK TO [facility]. CM NOTIFIED SHAY OF [facility], , WHO VERIFIED PT IS IN USP CARE BED AT FACILITY. CM FAXED UPDATE TO [facility] VIA [employer] AT [phone]. FOR DISCHARGE, FAX DISCHARGE INFORMATION TO [facility] AT [phone]. NURSE REPORT TO BE CALLED TO [facility] AT [phone]. [facility] TO ARRANGE VAN TRANSPORTATION. Bolivar Pink, CASE MANAGEMENT DCP- Discharge Planning Updated by [id number]: Aileen Salinas on 12/18/18 4:[address] CM MET WITH THE PATIENT AT THE BEDSIDE. EXPLAINED CM HAD ORDER FROM MD TO DISCUSS DCP. PATIENT CONSENTS TO SPEAK WITH CM. SHE WAS ADMITTED FROM [facility]. SHE WOULD LIKE TO DISCHARGE TO HER SISTER'S HOME AT DISCHARGE. SHE STATES SHE WILL NEED TO SPEAK WITH HER SISTER SHE HAS HER OWN MEDICAL ISSUES. HER SISTER IS ALAN LEE. PATIENT REPORTS SHE HAS A CELL PHONE [phone]. DISCHARGE PLAN IS PENDING. WILL NEED TO FOLLOW UP WITH SHIRLEY AND HER SISTER. DCPIA - Discharge Planning Initial Assessment Updated by [id number]: Bolivar Pink on 12/19/18 4:28 pm * Is the patient Alert and Oriented? Yes * How many steps to enter\exit or inside your home? NONE * PCP DR. ZUÑIGA * [facility] * Preadmission Environment Neuropsychologist Acute Care Facility * Facility Name [facility] * ADLs Partial Dependent * Partial ADLs (Assistance needed) Ambulation Bathing Medication Management Transfers * Equipment Other * Other Equipment ALL MEDICAL EQUIPMENT PROVIDED BY THE FACILITY * List name and contact numbers for known caregivers / representatives who currently or will assist patient after discharge: ALAN LEE, SISTER, * Verbal permission to speak to the caregivers and representatives has been obtained from the patient. Yes * Community resources currently utilized None * Please name any agencies selected above. NONE * Additional services required to return to the preadmission environment? No * Can the patient safely return to the preadmission environment? Yes * Has this patient been hospitalized within the prior 30 days at any hospital? No Coverage Notice Reviewer: JEFFERSON Pink Notice Issued Date-Time: 12/19/2018 11:05 Notice Type: Patient Choice Letter Notice Delivered To: Family Member Relationship to Patient: Sister Supervisor Phosphoric Acid Name: ALAN LEE Delivery Method: PHONE - Phone Becca Days: Prior Verbal Notification: Recipient Understood Notice: Yes Recipient Signature: Med Rec Note Co-signed by Attending: Coverage Notice Comment: [facility] RETURN TO [facility] Reviewer: JEFFERSON Pikn Notice Issued Date-Time: 12/19/2018 14:30 Notice Type: IM Discharge Notice Notice Delivered To: Family Member Relationship to Patient: Sister Supervisor Phosphoric Acid Name: ALAN LEE Delivery Method: PHONE - Phone Becca Days: Prior Verbal Notification: Recipient Understood Notice: Yes Recipient Signature: Med Rec Note Co-signed by Attending: Coverage Notice Comment: HAND DELIVERED COPY TO PT IN ROOM. Reviewer: JEFFERSON Pink Notice Issued Date-Time: 12/19/2018 14:30 Notice Type: IM Discharge Notice Notice Delivered To: Patient Relationship to Patient: Supervisor Phosphoric Acid Name: Delivery Method: HAND - Hand Delivered Becca Days: Prior Verbal Notification: Recipient Understood Notice: Yes Recipient Signature: Med Rec Note Co-signed by Attending: Coverage Notice Comment: PT REPORTS INABILITY TO SIGN ANYTHING Reviewer: JEFFERSON Pink Notice Issued Date-Time: 12/21/2018 9:00 Notice Type: IM Discharge Notice Notice Delivered To: Patient Relationship to Patient: Supervisor Phosphoric Acid Name: Delivery Method: HAND - Hand Delivered Becca Days: Prior Verbal Notification: Recipient Understood Notice: Yes Recipient Signature: Yes Med Rec Note Co-signed by Attending: Coverage Notice Comment: Last DP export: 12/26/18 12:42 p Patient Name: LIZZIE HOLLOWAY Page [id number] Electronically Signed by [facility] on 12/26/18 at 1703 All edits/amendments must be made on the electronic document DICTATION DATE: 12/26/181701 BOOT AND SHOE REPAIRMAN: ARNEL 12/26/181701 RPT#: [id number] DC DATE: STATUS: ADM IN [facility] [address] [place] [address] END OF REPORT
--- NOTE | 2018-12-26 19:06 | NUR ---
RECIEVED UP IN BED WITH EYE CLOSED NO S/S OF DISTRESS OBSERVED. F/C INTACT WITH DARK CONCENTRATED URINE IN BEDSIDE DRAINAGE BAG. HOB ELEVATED. O2 AT 9S PER HIGH FLOW CANNULA. REMAINS ON 1ST STEP OVERLAY.
[2018-12-26 21:03] VITALS: BP 133/51
[2018-12-27 06:25] VITALS: BP 146/58
[2018-12-27 06:50] LABS: ALBUMIN 1.6 g/dL (3.4-5.0); BILIRUBIN - TOTAL 1.08 mg/dL (0.2-1.3); CALCIUM 7.3 mg/dL (8.5-10.1); POTASSIUM - SERUM 3.5 mmol/L (3.5-5.1); VANCOMYCIN - RANDOM 4.3 ug/mL (10.0-20.0)
[2018-12-27 07:30] LABS: ANION GAP 5.4 mmol/L (8-16); CARBON DIOXIDE 37.1 mmol/L (21.0-32.0); CREATININE - SERUM 1.2 mg/dL (0.6-1.3)
[2018-12-27 07:44] LABS: BASOPHILS 0.1 % (0-2); HEMATOCRIT 23.9 % (36.0-48.0); IMMATURE GRANULOCYTES 0.5 % (0-5); LYMPHOCYTES 4.9 % (15-50); MCH 28.5 pg (26.0-34.0); MCHC 30.5 g/dL (31.0-37.0); MCV 93.4 fL (80.0-100.0); MEAN PLATELET VOLUME 10.9 fL (7.4-10.4); MONOCYTES 7.8 % (2-11); NEUTROPHILS 84.7 % (40-80); PLATELET COUNT 185 10x3/uL (130-400); RBC 2.56 10x6/uL (4.00-5.40); WBC 14.3 10x3/uL (4.8-10.8)
[2018-12-27 07:59] LABS: HEMOGLOBIN 7.3 g/dL (12-16)
--- NOTE | 2018-12-27 08:00 | NUR ---
CRITICAL LAB TAKEN. HGB IS 7.3. TOLD Carito SAMANO RN BEDSIDE NURSE.
[2018-12-27 09:13] VITALS: BP 110/68
--- NOTE | 2018-12-27 10:00 | NUR ---
PT IS ACCEPTED TO HOSPICE. A DISCHARGE ORDER HAS BEEN PLACED. DISCHARGE DONE.
--- NOTE | 2018-12-28 10:36 | MORECARE ---
CASE MANAGEMENT DISCHARGE SUMMARY PATIENT: LIZZIE HOLLOWAY UNIT: [id number] ADM DATE: 12/13/18 AGE: 78 : 41 SEX: F ROOM/BED: D.7000 AUTHOR: MATT,DOC PHYSICIAN: REFERRING PHYSICIAN: VICKEY ORTIZ MD DATE OF SERVICE: 12/28/18 Discharge Plan Patient Name: LIZZIE HOLLOWAY Facility: [facility]:[place] : 1940 Planned Disposition: Hospice Medical Facility Anticipated Discharge Date: 12/27/18 Discharge Date: 12/27/2018 Expected LOS: 14 Initial Reviewer: [id number] Initial Review Date: 12/19/2018 Generated: 12/28/18 11:36 am Comments DCP- Discharge Planning Updated by [id number]: Bolivar Pink on 12/26/18 4:[address] Patient Name: LIZZIE HOLLOWAY Encounter No: [id number] : 1940 Primary Insurance: MEDICARE A & B Anticipated DC Date: 12-27-2018 Planned Disposition: Hospice Medical Facility External Planned Provider: [facility] DCP follow-up note: CM SPOKE TO CAMI OF [facility], THEY WILL ADMIT TO INPATIENT HOSPICE TOMORROW PT'S SISTER WAS TIRED, WENT HOME AND WILL NOT BE BACK UNTIL TOMORROW TO SIGN LEGALS. PT'S SISTER DID NOT WANT TO DO LEGALS FOR HOSPICE ADMISSION TONIGHT. CM WAITING PT'S FAMILY TO SIGN FOR INPATIENT HOSPICE ADMISSION WITH [facility]; FAMILY PLANS TO SIGN 12-27-18. CHECO Rodriguez DCP- Discharge Planning Updated by [id number]: Bolivar Pink on 12/26/18 12:[address] Patient Name: LIZZIE HOLLOWAY Encounter No: [id number] : 1940 Primary Insurance: MEDICARE A & B Anticipated DC Date: 12-26-2018 Planned Disposition: Nursing Facility [facility] External Planned Provider: [facility] MEDICAID BED DCP follow-up note: CM RECEIVED HOSPICE ORDER, REVIEWED CHART; PT IS ON COMFORT CARE NOW. CM MET WITH PT AND SISTER, ALAN LEE, IN ROOM TO DISCUSS DISCHARGE PLANNING AND NEEDS. PT DID NOT SPEAK TO CM AT ALL. PT'S EYES WERE OPEN. CM DISCUSSED HOSPICE ORDER, PROVIDERS, LOCATIONS AND SERVICES. HOSPICE COMPANY LISTING AND BROCHURES PROVIDED. ALAN WOULD LIKE TO CONSULT WITH [facility] TO KEEP PT HERE AT [place] WITH HOSPICE IF POSSIBLE. THEY WOULD RETURN PT TO [facility] WITH [facility] IF PT DOES NOT MEET CRITERIA FOR INPATIENT HOSPICE. CM CALLED [facility], , PROVIDED REFERRAL INFORMATION TO AISHWARYA WHO WILL HAVE NURSE COME TO HOSPITAL SHORTLY TO EVALUATE PT FOR HOSPICE SERVICES. CM FAXED HOSPICE REFERRAL AND ORDER TO [facility] AT [phone]. CM WAITING EVALUATION AND ADMISSION DETERMINATION FROM [facility]. Bolivar Pink, CASE MANAGEMENT DCP- Discharge Planning Updated by [id number]: Bolivar Pink on 12/23/18 8:[address] Patient Name: LIZZIE HOLLOWAY Encounter No: [id number] : 1940 Primary Insurance: MEDICARE A & B Anticipated DC Date: 12-21-2018 Planned Disposition: Nursing Facility [facility] Cert External Planned Provider: [facility], MEDICARE REHAB BED DCP follow-up note: CM FAXED ICU UPDATE TO [facility] [employer]IA [employer] AT [phone]. [facility] PLANS TO ACCEPT PT BACK TO SKILLED REHAB BED AT DISCHARGE. CM TO CONTINUE TO FOLLOW AND ASSIST NEEDED. Bolivar Pink CASE CHELSY DCP- Discharge Planning Updated by [id number]: Bolivar Pink on 12/21/18 1:[address] Patient Name: LIZZIE HOLLOWAY Encounter No: [id number] : 1940 Primary Insurance: MEDICARE A & B Anticipated DC Date: 12-21-2018 Planned Disposition: Nursing Facility [facility] Cert External Planned Provider:[facility], MEDICARE REHAB BED DCP follow-up note: CM RECEIVED DISCHARGE ORDER, FAXED DISCHARGE TO [facility] [employer] AT [phone]. SHAY CONTACTED CM AND INFORMED THAT PT WILL RETURN TO SKILLED BED, VAN TO MANAGER CLINICAL RESEARCH AT 4:30PM TODAY. ERICKA CALLED PT'S SISTER, ALAN RUANO, , INFORMED OF DISCHARGE AND ALAN INFORMED CM THAT SHE IS OK WITH DISCHARGE BACK TO [facility] IF PT IS STABLE FOR DISCHARGE. ALAN WILL COME AND SEE PT PRIOR TO DISCHARGE TODAY AT HOSPITAL. NURSE REPORT TO BE CALLED TO [facility] AT [phone]. [facility] TO ARRANGE VAN TRANSPORTATION FOR 4:30PM TODAY. Bolivar Pink CASE MANAGEMENT DCP- Discharge Planning Updated by [id number]: Bolivar Pink on 12/21/18 7:[address] Patient Name: LIZZIE HOLLOWAY Encounter No: [id number] : 1940 Primary Insurance: MEDICARE A & B Anticipated DC Date: 12-21-2018 Planned Disposition: Nursing Facility [facility] Cert External Planned Provider: [facility], [facility] MEDICAID BED DCP follow-up note: CM MET WITH PT IN ROOM WHO IS STILL WILLING FOR DISCHARGE BACK TO [facility]IOR [facility]ARE CARE AT [facility]. CM PROVIDED AND DISCUSSED IMPORTANT MESSAGE FROM MEDICARE. CM FAXED UPDATE TO [facility] [employer]IA [employer] AT [phone]. FOR DISCHARGE, FAX DISCHARGE INFORMATION TO [facility] AT [phone]. NURSE REPORT TO BE CALLED TO [facility] AT [phone]. [facility] TO ARRANGE VAN TRANSPORTATION. Bolivar Pink CASE CHELSY DCP- Discharge Planning Updated by [id number]: Bolivar Pink on 12/19/18 2:[address] Patient Name: LIZZIE HOLLOWAY Encounter No: [id number] : 1940 Primary Insurance: MEDICARE A & B Anticipated DC Date: Planned Disposition: Nursing Facility [facility] Cert External Planned Provider: [facility], [facility] SPECIALIST CARE MEDICAID BED DCP follow-up note: CM SPOKE TO PT'S SISTER VIA PHONE, ALANTonie LEE, , WHO INFORMED CM THAT SHE TOOK CARE OF PT FOR 10 YEARS AT HOME. PT IS NOW A TOTAL CARE PT AND WILL HAVE TO RETURN TO [facility]. ALAN SEE'S PT AT LEAST THREE TIMES PER WEEK AT THE FACILITY AND IS SATISFIED WITH CARE RECEIVED THERE. CHOICE LETTER COMPLETED VIA PHONE. CM MET WITH PT LATER IN THE DAY, DISCUSSED DISCHARGE PLANNING. PT WAS HOPEFUL SHE COULD GO HOME BUT UNDERSTANDS THAT HER SISTER CANNOT CARE FOR HER. ALAN GRIMALDO CONTACTED VIA PHONE, CHOICE DISCUSSED, PROVIDER LISTING LEFT WITH PT. CHOICE COMPLETED VIA PHONE FOR [facility]. CM PROVIDED AND DISCUSSED IMPORTANT MESSAGE FROM MEDICARE. PT REPORTS INABILITY TO SIGN ANYTHING. ALAN ASKED TO BE NOTIFIED WHEN PT DISCHARGES BACK TO RETIREMENT. CM NOTIFIED SHAY OF [facility], , WHO VERIFIED PT IS IN RADIOS[facility]DE SPECIALIST CARE BED AT FACILITY. CM FAXED UPDATE TO [facility] [employer]IA [employer] AT [phone]. FOR DISCHARGE, FAX DISCHARGE INFORMATION TO [facility] AT [phone]. NURSE REPORT TO BE CALLED TO [facility] AT [phone]. [facility] TO ARRANGE VAN TRANSPORTATION. Bolivar Pink, CASE MANAGEMENT DCP- Discharge Planning Updated by [id number]: Aileen Salinas on 12/18/18 4:[address] CM MET WITH THE PATIENT AT THE BEDSIDE. EXPLAINED CM HAD ORDER FROM MD TO DISCUSS DCP. PATIENT CONSENTS TO SPEAK WITH CM. SHE WAS ADMITTED FROM [facility]. SHE WOULD LIKE TO DISCHARGE TO HER SISTER'S HOME AT DISCHARGE. SHE STATES SHE WILL NEED TO SPEAK WITH HER SISTER SHE HAS HER OWN MEDICAL ISSUES. HER SISTER IS ALAN LEE. PATIENT REPORTS SHE HAS A CELL PHONE [phone]. DISCHARGE PLAN IS PENDING. WILL NEED TO FOLLOW UP WITH SHIRLEY AND HER SISTER. DCPIA - Discharge Planning Initial Assessment Updated by [id number]: Bolivar Pink on 12/19/18 4:28 pm * Is the patient Alert and Oriented? Yes * How many steps to enter\exit or inside your home? NONE * PCP DR. ZUÑIGA * Pharm[facility] * Preadmission Environment Alf Acute Care Facility * Facility Name [facility] * ADLs Partial Dependent * Partial ADLs (Assistance needed) Ambulation Bathing Medication Management Transfers * Equipment Other * Other Equipment ALL MEDICAL EQUIPMENT PROVIDED BY THE FACILITY * List name and contact numbers for known caregivers / representatives who currently or will assist patient after discharge: ALAN LEE, SISTER, * Verbal permission to speak to the caregivers and representatives has been obtained from the patient. Yes * Community resources currently utilized None * Please name any agencies selected above. NONE * Additional services required to return to the preadmission environment? No * Can the patient safely return to the preadmission environment? Yes * Has this patient been hospitalized within the prior 30 days at any hospital? No Coverage Notice Reviewer: JEFFERSON Pink Notice Issued Date-Time: 12/19/2018 11:05 Notice Type: Patient Choice Letter Notice Delivered To: Family Member Relationship to Patient: Sister Tire Fixer Name: ALAN LEE Delivery Method: PHONE - Phone Becca Days: Prior Verbal Notification: Recipient Understood Notice: Yes Recipient Signature: Med Rec Note Co-signed by Attending: Coverage Notice Comment: SHIRLEY ROSE RETURN TO [facility] Reviewer: JEFFERSON Pink Notice Issued Date-Time: 12/19/2018 14:30 Notice Type: IM Discharge Notice Notice Delivered To: Family Member Relationship to Patient: Sister Tire Fixer Name: ALAN LEE Delivery Method: PHONE - Phone Becca Days: Prior Verbal Notification: Recipient Understood Notice: Yes Recipient Signature: Med Rec Note Co-signed by Attending: Coverage Notice Comment: HAND DELIVERED COPY TO PT IN ROOM. Reviewer: JEFFERSON Pink Notice Issued Date-Time: 12/19/2018 14:30 Notice Type: IM Discharge Notice Notice Delivered To: Patient Relationship to Patient: Tire Fixer Name: Delivery Method: HAND - Hand Delivered Becca Days: Prior Verbal Notification: Recipient Understood Notice: Yes Recipient Signature: Med Rec Note Co-signed by Attending: Coverage Notice Comment: PT REPORTS INABILITY TO SIGN ANYTHING Reviewer: JEFFERSON Pink Notice Issued Date-Time: 12/21/2018 9:00 Notice Type: IM Discharge Notice Notice Delivered To: Patient Relationship to Patient: Tire Fixer Name: Delivery Method: HAND - Hand Delivered Becca Days: Prior Verbal Notification: Recipient Understood Notice: Yes Recipient Signature: Yes Med Rec Note Co-signed by Attending: Coverage Notice Comment: Last DP export: 12/26/18 4:02 p Patient Name: LIZZIE HOLLOWAY Page [id number] at 1036 All edits/amendments must be made on the electronic document DICTATION DATE: 12/28/18 1036 BUSINESS TRANSFORMATION ANALYST: ARNEL 12/28/18 1036 RPT#: [id number] DC DATE:12/27/18 STATUS: DIS IN [facility] [address] [place] [address] END OF REPORT
== END 2018-12-27 10:01 | disposition hospice, inpatient (51) | DRG 177 ==
LOC: D.ER 02:33 → D.ICU 06:40 → D.M2 06:40 → D.SDCHOLD 12-19 12:42 → D.M2 12-19 12:46 → D.ICU 12-22 11:33 → D.M2 12-23 21:00
PROVIDERS: Emergency Medicine; Family Medicine; Internal Medicine Nephrology; Internal Medicine Pulmonary Disease; ADMIT Internal Medicine Nephrology; ATTEND Internal Medicine Nephrology
DX: J69.0 Pneumonitis due to inhalation of food and vomit (principal); J96.21 Acute and chronic respiratory failure with hypoxia; R57.8 Other shock; I69.359 Hemiplegia and hemiparesis following cerebral infarction affecting unspecified side; D80.3 Selective deficiency of immunoglobulin G [IgG] subclasses; J44.1 Chronic obstructive pulmonary disease with (acute) exacerbation; J44.0 Chronic obstructive pulmonary disease with (acute) lower respiratory infection; N17.9 Acute kidney failure, unspecified; Z68.41 Body mass index [BMI] 40.0-44.9, adult; S36.62XA Contusion of rectum, initial encounter; I71.4 Abdominal aortic aneurysm, without rupture; I10 Essential (primary) hypertension; E78.5 Hyperlipidemia, unspecified; E11.9 Type 2 diabetes mellitus without complications; I25.10 Atherosclerotic heart disease of native coronary artery without angina pectoris; G40.909 Epilepsy, unspecified, not intractable, without status epilepticus; E03.9 Hypothyroidism, unspecified; J20.9 Acute bronchitis, unspecified; J30.9 Allergic rhinitis, unspecified; K80.20 Calculus of gallbladder without cholecystitis without obstruction; Z99.81 Dependence on supplemental oxygen; I95.9 Hypotension, unspecified; E66.9 Obesity, unspecified; S30.1XXA Contusion of abdominal wall, initial encounter; E87.5 Hyperkalemia; Z87.891 Personal history of nicotine dependence; Z51.5 Encounter for palliative care

== ENCOUNTER 2018-12-27 10:15 | Inpatient (IN) | payer OTHER ==
[~2018-12-27] VITALS: Ht 157.5 cm; Wt 84.0 kg
[~2018-12-27 10:15] MED LIST changes: +ACETAMINOPHEN325 MG PO; +BROVANA15 MCG/2 M INH; +CALCIUM 600 +1 EAC3 PO; +CARBIDOPA-LEVO1 EAC4 PO; +COLACE100 MG PO; +DEPAKOTE125 MG PO; +DULCOLAX5 MG PO; +LANTUS SOL100 UNIT/1 SC; +PULMICORT0.5 MG/21 UPD; +SENNA LAXATIVE8.6 MG PO; +Tessalon Perle PO; +WELLBUTRIN SR150 MG PO
--- NOTE | 2018-12-27 11:30 | NUR ---
SLEEPING IN BED. DISCHARGED FROM INPATIENT TO READMIT TO INPATIENT HOSPICE. ORDERS FOR READMISSION SENT TO ADMISSIONS AT 10:15. PATIENT NOT REENTERED IN COMPUTER UNTIL 11:30. ADMISSION PROCESS CONTINUED. CONTINUE PLAN OF CARE AND SAFETY PRECAUTIONS.
[2018-12-27 11:45] VITALS: BP 110/68; BMI 34.4
--- NOTE | 2018-12-27 13:00 | NUR ---
INITIATE MORPHINE BARBER STYLIST ORDERED. RESTING IN BED. REQUESTING WATER. THINKEN WATER BEFORE LEAVING AT BEDSIDE. CONTINUE PLAN OF CARE AND SAFETY PRECAUTIONS.
[2018-12-27 13:13] VITALS: BP 146/51
--- NOTE | 2018-12-27 19:06 | NUR ---
RESUMING CARE .PT LAYING IN BED WITH EYES CLOSED BREATH SOUNDS EVEN , 9LITERS OF VIA NC , LFT FA RUNNING 1MG MORPHINE CONT , RT FA JUANCARLOS OCONNOR IN PLACE , PT IS ON HOSPICE , NO SIGNS OF PAIN OR DISRESS AT THIS TIME CL IN REACH , COMFORT MEASURE WILL CONT
[2018-12-27 21:13] VITALS: BP 145/57
--- NOTE | 2018-12-28 02:30 | NUR ---
I CONCUR WITH THE ASSESSMENT
[2018-12-28 08:18] VITALS: BP 164/59
--- NOTE | 2018-12-28 10:37 | MORECARE ---
CASE MANAGEMENT DISCHARGE SUMMARY PATIENT: LIZZIE HOLLOWAY UNIT: [id number] ADM DATE: 12/27/18 AGE: 78 : 41 SEX: F ROOM/BED: D.2104 AUTHOR: WHIT GUTIERREZ PHYSICIAN: REFERRING PHYSICIAN: JACQUES SEGOVIA MD DATE OF SERVICE: 12/28/18 Discharge Plan Patient Name: LIZZIE HOLLOWAY Facility: [facility]:[place] : 1940 Planned Disposition: Anticipated Discharge Date: Discharge Date: Expected LOS: Initial Reviewer: [id number] Initial Review Date: 12/27/2018 Generated: 12/28/18 11:37 am Comments DCP- Discharge Planning Updated by [email or web address]: Bolivar Pink on 12/28/18 9:[address] Patient Name: LIZZIE HOLLOWAY Admission Status: Urgent Accout number: [id number] Admission Date: 12-27-2018 : 1940 Admission Diagnosis: Attending: JACQUES SEGOVIA Current LOS: 1 Anticipated DC Date: Planned Disposition: Primary Insurance: [facility] PLANNED EXTERNAL PROVIDER: [facility] Discharge Planning Comments: CM REVIEWED CHART, PT'S FAMILY SIGNED LEGALS WITH [facility] 12-27-18, PT ADMITTED TO INPATIENT HOSPICE. HOSPICE TO PROVIDE ALL NEEDED CASE MANAGEMENT SERVICES. Chief Technologist: Bolivar Pink Patient Name: LIZZIE HOLLOWAY Page 10084 at 1037 All edits/amendments must be made on the electronic document DICTATION DATE: 12/28/18 1037 LIGHT OUT EXAMINER: ARNEL 12/28/18 1037 RPT#: [id number] DC DATE: STATUS: ADM IN [facility] [address] [place] [address] END OF REPORT
[2018-12-28 15:21] VITALS: Ht 157.5 cm; Wt 84.0 kg
--- NOTE | 2018-12-28 19:45 | NUR ---
RESUMING PT CARE. PT IS RESTING COMFORTABLY WITH EYES CLOSED. NO S/S OF ACUTE DISTRSS AT THIS TIME. PT HAS A BAUER THAT IS IN PLACE. PT IS ON HIGH FLOW 9 LITERS OF O2. PT IS ON HOSPICE.L PT HAS A IV IN THE RIGHT AND LEFT FOREARM. BED IN LOW POSITION WITH CALL LIGHT IN REACH. WILL CONTINUE TO MONITOR PT AND FOLLOW PLAN OF CARE.
--- NOTE | 2018-12-29 01:47 | NUR ---
PT LAYING IN BED RESTING COMFORTABLY WITH EYES CLOSED. NO ACUTE S/S OF DISTRESS NOTED. BED IN LOW POSITION WITH CALL LIGHT IN REACH. SIDE RAILS UP. WILL CONTINUE TO MONITOR PT AND FOLLOW PLAN OF CARE.
--- NOTE | 2018-12-29 05:58 | NUR ---
PT LAYING IN BED RESTING COMFORTABLY WITH EYES OPEN. NO ACUTE S/S OF DIATRESS NOTED AT THIS TIME. BED IN LOW POSITION WITH CALL LIGHT IN REACH. WILL CONTINUE TO MONITOR PT AND FOLLOW PLAN OF CARE.
[2018-12-29 08:06] VITALS: BP 129/50
--- NOTE | 2018-12-29 19:45 | NUR ---
RESUMING PT CARE. PT IS ON HOSPICE. PT IS ALERT LAYING IN BED. NO ACUTE S/S OF DISTRESS NOTED. PT HAS A IV IN THE RIGHT AND LEFT FOREARM. PT HAS A BAUER THAT IS INTACT. PT IS ON 4 LITERS OF OXYGEN. PT IS ON A CONTINOUS MORPHINE 1MG CANE FURNITURE MAKER. BED IN LOW POSITION WITH CALL LIGHT IN PLACE. WILL CONTINUE TO MONITOR PT AND FOLLOW PLAN OF CARE.
[2018-12-29 20:00] VITALS: BP 157/76
[2018-12-30 00:30] VITALS: BP 154/75
[2018-12-30 04:00] VITALS: BP 149/72
--- NOTE | 2018-12-30 07:37 | NUR ---
REPORT RECEIVED. WILL CONTINUE WITH POC. PT CURRENTLY LYING SEMI FOWLERS. CALL LIGHT W/I REACH. PT IS AA BUT CONFUSED TO TIME, PLACE, SITUATION, AND PERSON. PT IS BEDFAST AND TURN Q2H. RR EVEN AND UNLABORED ON 4L 02. MORPHINE IS INFUSING CONTINUOUS @1ML/HR VIA L.FOR PIV. NO S/S OF DISTRESS NOTED. WILL CTM.
[2018-12-30 09:46] VITALS: BP 156/71
--- NOTE | 2018-12-30 12:25 | MORECARE ---
CASE MANAGEMENT DISCHARGE SUMMARY PATIENT: LIZZIE HOLLOWAY UNIT: [id number] ADM DATE: 12/27/18 AGE: 78 : 42 SEX: F ROOM/BED: D.2387 AUTHOR: WHIT GUTIERREZ PHYSICIAN: REFERRING PHYSICIAN: JACQUES SEGOVIA MD DATE OF SERVICE: 12/30/18 Discharge Plan Patient Name: LIZZIE HOLLOWAY Facility: [facility] : 1940 Planned Disposition: Nursing Facility [facility] Cert Anticipated Discharge Date: 12/30/18 Discharge Date: Expected LOS: 3 Initial Reviewer: [email or web address] Initial Review Date: 12/27/2018 Generated: 12/30/18 1:25 pm Comments DCP- Discharge Planning Updated by [email or web address]: Bolivar Pink on 12/30/18 11:[address] Patient Name: LIZZIE HOLLOWAY Encounter No: [id number] : 1940 Primary Insurance: [facility] Anticipated DC Date: 12-30-2018 Planned Disposition: Nursing Facility [facility] Cert External Planned Provider: [facility], LONG TERM CARE MEDICAID WITH [facility] DCP follow-up note: CM SPOKE TO LILIANA OF [facility] WHO INFORMED CM THAT PT WILL DISCHARGE TODAY TO [facility] FOR MACHINE SET UP CARE. CHECO Rodriguez DCP- Discharge Planning Updated by [email or web address]: Bolivar Pink on 12/28/18 9:[address] Patient Name: LIZZIE HOLLOWAY Admission Status: Urgent Accout number: [id number] Admission Date: 12-27-2018 : 1940 Admission Diagnosis: Attending: JACQUES SEGOVIA Current LOS: 1 Anticipated DC Date: Planned Disposition: Primary Insurance: [facility] PLANNED EXTERNAL PROVIDER: [facility] Discharge Planning Comments: CM REVIEWED CHART, PT'S FAMILY SIGNED LEGALS WITH [facility] 12-27-18, PT ADMITTED TO INPATIENT HOSPICE. HOSPICE TO PROVIDE ALL NEEDED CASE MANAGEMENT SERVICES. Bulb Inspector: Bolivar Pink Last DP export: 12/28/18 9:37 a Patient Name: LIZZIE HOLLOWAY Page [id number] at 1225 All edits/amendments must be made on the electronic document DICTATION DATE: 12/30/185 CONCRETING SUPERVISOR: ARNEL 12/30/18 1225 RPT#: [id number] DC DATE: STATUS: ADM IN [facility] [address] [place] [address] END OF REPORT
--- NOTE | 2018-12-30 15:03 | NUR ---
PT TRANSFERED TO [facility] VIA EMS TRANSPORT. PIV'S REMOVED WITH CATHETER TIP FULLY INTACT. BAUER IN PLACE AND DRAINING URINE. PT DAUGHTER SIGNED PROPER DISCHARGE INSTRUCTION AND ALL VALUABLES WERE REMOVED FROM THE ROOM.
== END 2018-12-30 15:05 | disposition home health service (06) | DRG 951 ==
LOC: D.M2 10:15
PROVIDERS: ADMIT Legal Medicine; ATTEND Legal Medicine
DX: Z51.5 Encounter for palliative care (principal)